=== PATIENT | female | born 1945 | race African-American/Black ===

== ENCOUNTER 2017-10-01 14:28 | Emergency (ER) | payer BC ==
[~2017-10-01] VITALS: Ht 170.2 cm; Wt 75.0 kg
[~2017-10-01 14:28] MED LIST: ASPI-1158 PO; ATOR20TA65 PO; ERGO400C PO; FISH1CAP2 PO; FOLI-43 PO; HYDR-4134 PO; NISO40TA3 PO
[2017-10-01 20:30] VITALS: BP 152/70
== END 2017-10-01 20:32 | disposition home or self-care (01) ==
LOC: ER 16:40
DX: J42 Unspecified chronic bronchitis (principal); I11.0 Hypertensive heart disease with heart failure; I25.2 Old myocardial infarction; J98.11 Atelectasis; I50.9 Heart failure, unspecified; E78.00 Pure hypercholesterolemia, unspecified; Z96.649 Presence of unspecified artificial hip joint; Z88.8 Allergy status to other drugs, medicaments and biological substances; Z79.82 Long term (current) use of aspirin; Z96.659 Presence of unspecified artificial knee joint
CPT/HCPCS: 71046; 99284

== ENCOUNTER 2017-11-01 10:09 | Inpatient (IN) | payer BC ==
[~2017-11-01] VITALS: Ht 170.2 cm; Wt 78.0 kg
[2017-11-01] MEDS ORDERED: METHYLPREDNISOLONE SOD SUCC 125 MG/2 ML VIAL IV STA (10:30)
[2017-11-01] MEDS ORDERED: MAGNESIUM 2 G PREMIX 50 ML IV ONE (10:30)
[2017-11-01] MEDS ORDERED: IPRATROPIUM/ALBUTEROL 0.5-3(2.5)MG/3ML NEB HHN ONE ×2 (10:30→14:15)
[2017-11-01 11:07] LABS: BASOPHILS % 1.2 % (0.0-2.0); EOSINOPHILS % 2.4 % (0.0-5.0); HEMATOCRIT. 33.3 % (36.0-48.0); HEMOGLOBIN. 10.8 g/dL (12.0-16.0); LYMPHOCYTES % 16.2 % (20.0-50.0); MEAN CORPUSCULAR HEMOGLOBIN 28.6 pg (28.0-32.0); MEAN CORPUSCULAR VOLUME 88.6 fL (81.0-99.0); MEAN PLATELET VOLUME 8.1 fl (7.4-10.4); MONOCYTES % 6.3 % (2.0-8.0); NEUTROPHILS % 73.9 % (40.0-76.0); PLATELET 287 x1000/uL (130-400); RED BLOOD CELL COUNT 3.76 mill/uL (4.2-5.4); RED CELL DISTRIBUTION WIDTH 15.2 % (11.6-14.6)
[2017-11-01 11:12] LABS: CHLORIDE 108 mEq/L (98-107)
[2017-11-01 11:16] LABS: PROTHROMBIN TIME 10.5 sec (9.4-11.6)
[2017-11-01] MEDS ORDERED: FUROSEMIDE 40MG/4ML VIAL IVP ONE (12:45)
[2017-11-01] MEDS ORDERED: NITROGLYCERIN OINT 1GM/INCH UDPKT TD ONE (12:45)
[2017-11-01] MEDS ORDERED: ASPIRIN 325MG TABLET PO ONE (14:15)
[2017-11-01] MEDS ORDERED: LEVOFLOXACIN 500MG PREMIX 100 ML IV SCH (16:00)
[2017-11-01] MEDS ORDERED: CLONIDINE 0.1MG TABLET PO PRN (16:00)
[2017-11-01] MEDS ORDERED: HYDROCODONE/ACETAMINOPHEN 5/325MG TABLET PO PRN (16:00)
[2017-11-01] MEDS ORDERED: ONDANSETRON HCL 4MG/2ML VIAL IV PRN (16:00)
[2017-11-01 16:30] VITALS: BP 148/84
[2017-11-01] MEDS: ENOXAPARIN 40MG/0.4ML SYR SUBCUT SCH (18:22)
[2017-11-01] MEDS: IPRATROPIUM/ALBUTEROL 0.5-3(2.5)MG/3ML NEB INH PRN ×2 (18:35→22:17)
[2017-11-01] MEDS ORDERED: BENZ100C86 PO (19:17)
[2017-11-01] MEDS ORDERED: AMLO10TA80 PO (19:18)
[2017-11-01 20:00] VITALS: BP_SYST 138; BP_DIAS 71; BP_DIAS 75
[2017-11-01] MEDS: GUAIFENESIN-DM 200MG-20MG/10ML UDC PO PRN (21:28)
[2017-11-01] MEDS: CEFTRIAXONE 1 G PREMIX 50 ML IV SCH (22:57)
[2017-11-02] VITALS: BP 119/68
[2017-11-02 00:17] LABS: CLARITY URINE CLEAR (CLEAR); COLOR URINE YELLOW (YELLOW); KETONES URINE NEGATIVE (NEGATIVE); LEUKOCYTE ESTERASE URINE NEGATIVE (NEGATIVE); NITRITE URINE NEGATIVE (NEGATIVE); OCCULT BLOOD URINE NEGATIVE (NEGATIVE); PROTEIN URINE 1+ (NEGATIVE); SPECIFIC GRAVITY URINE 1.013 (1.005-1.030); UROBILINOGEN URINE 0.2 E.U./dL (0.2-1.0)
[2017-11-02 04:00] VITALS: BP 131/65
[2017-11-02] MEDS: IPRATROPIUM/ALBUTEROL 0.5-3(2.5)MG/3ML NEB INH PRN (04:18)
[2017-11-02 07:21] LABS: BASOPHILS % 0.2 % (0.0-2.0); HEMATOCRIT. 29.3 % (36.0-48.0); HEMOGLOBIN. 9.8 g/dL (12.0-16.0); LYMPHOCYTES % 8.6 % (20.0-50.0); MEAN CORPUSCULAR HEMOGLOBIN 29.2 pg (28.0-32.0); MEAN CORPUSCULAR VOLUME 87.5 fL (81.0-99.0); MEAN PLATELET VOLUME 8.9 fl (7.4-10.4); MONOCYTES % 3.1 % (2.0-8.0); NEUTROPHILS % 88.1 % (40.0-76.0); PLATELET 260 x1000/uL (130-400); RED BLOOD CELL COUNT 3.35 mill/uL (4.2-5.4); RED CELL DISTRIBUTION WIDTH 14.7 % (11.6-14.6)
[2017-11-02 07:36] LABS: CHLORIDE 104 mEq/L (98-107)
[2017-11-02 07:49] LABS: CREATINE KINASE 99 IU/L (26-192); T4 FREE 1.36 ng/dL (0.76-1.46)
[2017-11-02 08:00] VITALS: BP 142/89
[2017-11-02] MEDS: AMLODIPINE 5MG TABLET PO SCH ×2 (08:41→18:09)
[2017-11-02] MEDS ORDERED: FUROSEMIDE 40MG/4ML VIAL IV SCH (09:00)
[2017-11-02] MEDS: ACETAMINOPHEN 325MG TABLET PO PRN (10:35)
[2017-11-02 12:00] VITALS: BP 124/96
[2017-11-02] MEDS: FAMOTIDINE 20MG/2ML VIAL IV SCH (12:36)
[2017-11-02] MEDS: METHYLPREDNISOLONE SOD SUCC 40 MG/ML VIAL IV SCH ×2 (12:57→21:27)
[2017-11-02] MEDS: IPRATROPIUM/ALBUTEROL 0.5-3(2.5)MG/3ML NEB HHN SCH ×3 (13:43→21:30)
[2017-11-02] MEDS: GUAIFENESIN-DM 200MG-20MG/10ML UDC PO PRN (14:46)
[2017-11-02] MEDS: BUDESONIDE 0.5MG/2ML NEB HHN SCH (15:03)
[2017-11-02 16:00] VITALS: BP 123/71
[2017-11-02] MEDS: ENOXAPARIN 40MG/0.4ML SYR SUBCUT SCH (18:09)
[2017-11-02] MEDS: POTASSIUM CHLORIDE 20MEQ TABLET SR PO SCH ×2 (18:09→21:28)
[2017-11-02] MEDS: ASPIRIN 81MG EC TABLET PO SCH (18:16)
[2017-11-02] MEDS: LOSARTAN POTASSIUM 25 MG TABLET PO SCH (18:23)
[2017-11-02 20:00] VITALS: BP 150/69
[2017-11-02] MEDS: GUAIFENESIN 600MG ER TABLET PO SCH (21:27)
[2017-11-02] MEDS: CARVEDILOL 3.125 MG TABLET PO SCH (21:29)
[2017-11-02] MEDS: FUROSEMIDE 40MG/4ML VIAL IV SCH (21:30)
[2017-11-02] MEDS: CEFTRIAXONE 1 G PREMIX 50 ML IV SCH (23:31)
[2017-11-03] VITALS: BP 128/81
[2017-11-03] MEDS: IPRATROPIUM/ALBUTEROL 0.5-3(2.5)MG/3ML NEB HHN SCH ×6 (02:06→20:38)
[2017-11-03] MEDS: BUDESONIDE 0.5MG/2ML NEB HHN SCH ×3 (02:06→20:37)
[2017-11-03] MEDS: METHYLPREDNISOLONE SOD SUCC 40 MG/ML VIAL IV SCH ×3 (03:57→21:04)
[2017-11-03 04:00] VITALS: BP 125/80
[2017-11-03] MEDS: POTASSIUM CHLORIDE 20MEQ TABLET SR PO SCH (06:10)
[2017-11-03] MEDS: FUROSEMIDE 40MG/4ML VIAL IV SCH (06:10)
[2017-11-03 07:29] VITALS: BP 133/77
[2017-11-03] MEDS: CARVEDILOL 3.125 MG TABLET PO SCH (08:20)
[2017-11-03] MEDS: GUAIFENESIN 600MG ER TABLET PO SCH ×2 (08:20→21:04)
[2017-11-03] MEDS: LOSARTAN POTASSIUM 25 MG TABLET PO SCH (08:20)
[2017-11-03] MEDS: ASPIRIN 81MG EC TABLET PO SCH (08:20)
[2017-11-03] MEDS: FAMOTIDINE 20MG/2ML VIAL IV SCH (09:00)
[2017-11-03 10:02] LABS: HEMATOCRIT. 30.1 % (36.0-48.0); MEAN CORPUSCULAR HEMOGLOBIN 29.1 pg (28.0-32.0); MEAN CORPUSCULAR VOLUME 87.3 fL (81.0-99.0); MEAN PLATELET VOLUME 8.9 fl (7.4-10.4); PLATELET 280 x1000/uL (130-400); RED BLOOD CELL COUNT 3.45 mill/uL (4.2-5.4); RED CELL DISTRIBUTION WIDTH 15.2 % (11.6-14.6)
[2017-11-03 10:52] LABS: PLATELET ESTIMATE NORMAL
[2017-11-03 11:53] VITALS: BP 116/68
[2017-11-03 16:08] VITALS: BP 149/96
[2017-11-03] MEDS: ENOXAPARIN 40MG/0.4ML SYR SUBCUT SCH (17:33)
[2017-11-03 20:00] VITALS: BP 138/80
[2017-11-03] MEDS: GUAIFENESIN-DM 200MG-20MG/10ML UDC PO PRN (21:04)
[2017-11-03] MEDS: ATORVASTATIN CALCIUM 20MG TABLET PO SCH (21:05)
[2017-11-03] MEDS: CEFTRIAXONE 1 G PREMIX 50 ML IV SCH (23:25)
[2017-11-04] VITALS: BP 140/85
[2017-11-04] MEDS: IPRATROPIUM/ALBUTEROL 0.5-3(2.5)MG/3ML NEB HHN SCH ×6 (00:40→21:58)
[2017-11-04 04:00] VITALS: BP 136/86
[2017-11-04] MEDS: METHYLPREDNISOLONE SOD SUCC 40 MG/ML VIAL IV SCH ×3 (04:07→21:14)
[2017-11-04] MEDS: GUAIFENESIN-DM 200MG-20MG/10ML UDC PO PRN (04:07)
[2017-11-04 07:52] LABS: HEMATOCRIT. 31.4 % (36.0-48.0); HEMOGLOBIN. 10.4 g/dL (12.0-16.0); MEAN CORPUSCULAR HEMOGLOBIN 28.9 pg (28.0-32.0); MEAN CORPUSCULAR VOLUME 87.3 fL (81.0-99.0); MEAN PLATELET VOLUME 9.1 fl (7.4-10.4); PLATELET 320 x1000/uL (130-400); RED CELL DISTRIBUTION WIDTH 15.1 % (11.6-14.6)
[2017-11-04 08:00] VITALS: BP 137/68
[2017-11-04 08:05] LABS: CHLORIDE 98 mEq/L (98-107)
[2017-11-04] MEDS: BUDESONIDE 0.5MG/2ML NEB HHN SCH ×2 (08:47→21:58)
[2017-11-04] MEDS: GUAIFENESIN 600MG ER TABLET PO SCH ×2 (08:48→21:14)
[2017-11-04] MEDS: AMLODIPINE 5MG TABLET PO SCH (08:48)
[2017-11-04] MEDS: FAMOTIDINE 20MG/2ML VIAL IV SCH (08:48)
[2017-11-04] MEDS: ASPIRIN 81MG EC TABLET PO SCH (08:48)
[2017-11-04] MEDS: LOSARTAN POTASSIUM 25 MG TABLET PO SCH (08:49)
[2017-11-04] MEDS: FUROSEMIDE 40MG/4ML VIAL IV SCH (08:49)
[2017-11-04 10:37] LABS: PLATELET ESTIMATE NORMAL
[2017-11-04 12:00] VITALS: BP 140/71
[2017-11-04 16:00] VITALS: BP 124/67
[2017-11-04] MEDS: ENOXAPARIN 30MG/0.3ML SYR SUBCUT SCH (18:14)
[2017-11-04 20:00] VITALS: BP 153/85
[2017-11-04] MEDS: ATORVASTATIN CALCIUM 20MG TABLET PO SCH (21:14)
[2017-11-04] MEDS: CEFTRIAXONE 1 G PREMIX 50 ML IV SCH (23:22)
[2017-11-05] VITALS: BP 130/78
[2017-11-05] MEDS: IPRATROPIUM/ALBUTEROL 0.5-3(2.5)MG/3ML NEB HHN SCH ×6 (01:51→20:27)
[2017-11-05 04:00] VITALS: BP 148/76
[2017-11-05] MEDS: METHYLPREDNISOLONE SOD SUCC 40 MG/ML VIAL IV SCH ×2 (04:39→18:04)
[2017-11-05 08:00] VITALS: BP 122/70
[2017-11-05] MEDS: BUDESONIDE 0.5MG/2ML NEB HHN SCH (08:41)
[2017-11-05] MEDS: ASPIRIN 81MG EC TABLET PO SCH (09:31)
[2017-11-05] MEDS: GUAIFENESIN-DM 200MG-20MG/10ML UDC PO PRN (09:31)
[2017-11-05] MEDS: AMLODIPINE 5MG TABLET PO SCH (09:32)
[2017-11-05] MEDS: FAMOTIDINE 20MG/2ML VIAL IV SCH (09:33)
[2017-11-05] MEDS: FUROSEMIDE 40MG/4ML VIAL IV SCH (09:33)
[2017-11-05] MEDS: LOSARTAN POTASSIUM 25 MG TABLET PO SCH (09:33)
[2017-11-05] MEDS: GUAIFENESIN 600MG ER TABLET PO SCH ×2 (09:35→20:19)
[2017-11-05] MEDS ORDERED: GUAIFENESIN/CODEINE 200-20MG/10ML UDC PO NR (11:00)
[2017-11-05 16:00] VITALS: BP 155/76
[2017-11-05] MEDS ORDERED: GUAIFENESIN/CODEINE 200-20MG/10ML UDC PO PRN (16:00)
[2017-11-05] MEDS: ENOXAPARIN 30MG/0.3ML SYR SUBCUT SCH (18:04)
[2017-11-05 20:00] VITALS: BP 126/73
[2017-11-05] MEDS: ATORVASTATIN CALCIUM 40MG TABLET PO SCH (20:19)
[2017-11-05] MEDS: CEFTRIAXONE 1 G PREMIX 50 ML IV SCH (22:25)
[2017-11-06] VITALS: BP 139/79
[2017-11-06] MEDS: IPRATROPIUM/ALBUTEROL 0.5-3(2.5)MG/3ML NEB HHN SCH ×5 (00:51→20:12)
[2017-11-06 04:00] VITALS: BP 124/75
[2017-11-06] MEDS: METHYLPREDNISOLONE SOD SUCC 40 MG/ML VIAL IV SCH ×2 (06:25→17:49)
[2017-11-06 07:41] LABS: HEMATOCRIT. 30.8 % (36.0-48.0); HEMOGLOBIN. 10.1 g/dL (12.0-16.0); MEAN CORPUSCULAR HEMOGLOBIN 28.7 pg (28.0-32.0); MEAN CORPUSCULAR VOLUME 87.1 fL (81.0-99.0); PLATELET 306 x1000/uL (130-400); RED BLOOD CELL COUNT 3.53 mill/uL (4.2-5.4)
[2017-11-06 08:00] VITALS: BP 149/72
[2017-11-06] MEDS: AMLODIPINE 5MG TABLET PO SCH (09:08)
[2017-11-06] MEDS: GUAIFENESIN 600MG ER TABLET PO SCH ×2 (09:08→20:44)
[2017-11-06] MEDS: LOSARTAN POTASSIUM 25 MG TABLET PO SCH (09:08)
[2017-11-06] MEDS: ASPIRIN 81MG EC TABLET PO SCH (09:08)
[2017-11-06] MEDS: FAMOTIDINE 20MG/2ML VIAL IV SCH (09:08)
[2017-11-06] MEDS: FUROSEMIDE 40MG/4ML VIAL IV SCH (09:09)
[2017-11-06 16:00] VITALS: BP 135/80
[2017-11-06 17:17] LABS: PLATELET ESTIMATE NORMAL
[2017-11-06] MEDS: ENOXAPARIN 30MG/0.3ML SYR SUBCUT SCH (17:49)
[2017-11-06] MEDS: ACETAMINOPHEN 325MG TABLET PO PRN (19:51)
[2017-11-06 20:00] VITALS: BP 153/69
[2017-11-06] MEDS: ATORVASTATIN CALCIUM 40MG TABLET PO SCH (20:44)
[2017-11-06] MEDS: CEFTRIAXONE 1 G PREMIX 50 ML IV SCH (22:41)
[2017-11-07] VITALS: BP 127/59
[2017-11-07] MEDS: IPRATROPIUM/ALBUTEROL 0.5-3(2.5)MG/3ML NEB HHN SCH ×4 (00:02→13:25)
[2017-11-07 04:00] VITALS: BP 140/62
[2017-11-07] MEDS: METHYLPREDNISOLONE SOD SUCC 40 MG/ML VIAL IV SCH (05:55)
[2017-11-07 08:00] VITALS: BP 154/67
[2017-11-07] MEDS: AMLODIPINE 5MG TABLET PO SCH (08:34)
[2017-11-07] MEDS: GUAIFENESIN 600MG ER TABLET PO SCH (08:34)
[2017-11-07] MEDS: FAMOTIDINE 20MG/2ML VIAL IV SCH (08:34)
[2017-11-07] MEDS: LOSARTAN POTASSIUM 25 MG TABLET PO SCH (08:34)
[2017-11-07] MEDS: ASPIRIN 81MG EC TABLET PO SCH (08:34)
[2017-11-07] MEDS ORDERED: FUROSEMIDE 40MG TABLET PO SCH (09:00)
[2017-11-07 12:00] VITALS: BP 145/75
[2017-11-07 13:18] VITALS: BP 145/75
[2017-11-07 16:00] VITALS: BP 133/56
== END 2017-11-07 16:14 | disposition home or self-care (01) | DRG 280 ==
LOC: ER 10:25 → ENRESERV 11:16 → 5WST 14:41 → EDBEDREQ 14:46 → SUPCPDRO 15:54
PROVIDERS: ADMIT Internal Medicine; ATTEND Internal Medicine
DX: I21.4 Non-ST elevation (NSTEMI) myocardial infarction (principal); I50.43 Acute on chronic combined systolic (congestive) and diastolic (congestive) heart failure; J96.00 Acute respiratory failure, unspecified whether with hypoxia or hypercapnia; N17.0 Acute kidney failure with tubular necrosis; E46 Unspecified protein-calorie malnutrition; J44.1 Chronic obstructive pulmonary disease with (acute) exacerbation; I13.0 Hypertensive heart and chronic kidney disease with heart failure and stage 1 through stage 4 chronic kidney disease, or unspecified chronic kidney disease; N18.9 Chronic kidney disease, unspecified; D63.8 Anemia in other chronic diseases classified elsewhere; Z96.641 Presence of right artificial hip joint; Z96.659 Presence of unspecified artificial knee joint; G89.29 Other chronic pain; E78.5 Hyperlipidemia, unspecified; I25.10 Atherosclerotic heart disease of native coronary artery without angina pectoris; I27.20 Pulmonary hypertension, unspecified; I08.0 Rheumatic disorders of both mitral and aortic valves; Z79.82 Long term (current) use of aspirin; Z87.891 Personal history of nicotine dependence; Z95.5 Presence of coronary angioplasty implant and graft; Z88.1 Allergy status to other antibiotic agents; Z88.8 Allergy status to other drugs, medicaments and biological substances; Z79.899 Other long term (current) drug therapy; Z72.89 Other problems related to lifestyle
CPT/HCPCS: 36415; 71045; 80048; 80053; 80061; 81003; 82550; 83036; 83605; 83735; 83880; 84439; 84443; 84484; 85025; 85610; 85730; 87040; 87070; 87804; 93005; 93306; 94618; 94640; 96365; 96375; 99285; J0696; J1650; J1940; J2920; J2930; J3475; J3490; J7050; J7620; J7626

== ENCOUNTER 2017-11-20 09:45 | Inpatient (IN) | payer BC ==
[~2017-11-20] VITALS: Ht 170.2 cm; Wt 72.4 kg
[~2017-11-20 09:45] MED LIST changes: +AMLO10TA80 PO; +BENZ100C86 PO
[2017-11-20] MEDS ORDERED: ASPIRIN 81MG TABLET PO STA (10:04)
[2017-11-20] MEDS ORDERED: ONDANSETRON HCL 4MG/2ML VIAL IV STA (10:04)
[2017-11-20] MEDS ORDERED: ACETAMINOPHEN 325MG TABLET PO ONE (10:15)
[2017-11-20 10:27] LABS: BASOPHILS % 0.5 % (0.0-2.0); CHLORIDE 103 mEq/L (98-107); EOSINOPHILS % 3.4 % (0.0-5.0); HEMATOCRIT. 34.3 % (36.0-48.0); HEMOGLOBIN. 11.4 g/dL (12.0-16.0); LYMPHOCYTES % 12.4 % (20.0-50.0); MEAN CORPUSCULAR HEMOGLOBIN 29.5 pg (28.0-32.0); MEAN CORPUSCULAR VOLUME 88.5 fL (81.0-99.0); MONOCYTES % 6.1 % (2.0-8.0); NEUTROPHILS % 77.6 % (40.0-76.0); PLATELET 239 x1000/uL (130-400); RED BLOOD CELL COUNT 3.87 mill/uL (4.2-5.4); RED CELL DISTRIBUTION WIDTH 16.4 % (11.6-14.6)
[2017-11-20 10:50] LABS: D-DIMER 0.88 mg/L FEU (<0.50); INR 1.1; PARTIAL THROMBOPLASTIN TIME 29.2 sec (23.4-31.0); PROTHROMBIN TIME 11.4 sec (9.4-11.6)
[2017-11-20 10:58] LABS: CLARITY URINE CLEAR (CLEAR); COLOR URINE YELLOW (YELLOW); KETONES URINE NEGATIVE (NEGATIVE); LEUKOCYTE ESTERASE URINE 1+ (NEGATIVE); NITRITE URINE NEGATIVE (NEGATIVE); OCCULT BLOOD URINE NEGATIVE (NEGATIVE); PROTEIN URINE NEGATIVE (NEGATIVE); SPECIFIC GRAVITY URINE 1.006 (1.005-1.030); UROBILINOGEN URINE 0.2 E.U./dL (0.2-1.0)
[2017-11-20 12:00] VITALS: BP 147/78
[2017-11-20 12:30] VITALS: BP 147/78
[2017-11-20] MEDS ORDERED: ENOXAPARIN 40MG/0.4ML SYR SUBCUT SCH (14:00)
[2017-11-20] MEDS ORDERED: IPRATROPIUM/ALBUTEROL 0.5-3(2.5)MG/3ML NEB INH PRN (14:00)
[2017-11-20] MEDS ORDERED: HYDROCODONE/ACETAMINOPHEN 5/325MG TABLET PO PRN (14:00)
[2017-11-20] MEDS ORDERED: ASPIRIN 81MG EC TABLET PO SCH (14:00)
[2017-11-20] MEDS ORDERED: ONDANSETRON HCL 4MG/2ML VIAL IV PRN (14:00)
[2017-11-20] MEDS ORDERED: CLONIDINE 0.1MG TABLET PO PRN (14:00)
[2017-11-20] MEDS ORDERED: ACETAMINOPHEN 325MG TABLET PO PRN (14:00)
[2017-11-20 16:00] VITALS: BP 152/73
[2017-11-20] MEDS: POTASSIUM CHLORIDE 20MEQ TABLET SR PO SCH (18:32)
[2017-11-20] MEDS: FUROSEMIDE 40MG/4ML VIAL IVP SCH (18:32)
[2017-11-20 20:00] VITALS: BP 145/65
[2017-11-20] MEDS: ATORVASTATIN CALCIUM 20MG TABLET PO SCH (20:19)
[2017-11-20] MEDS: AMLODIPINE 5MG TABLET PO SCH (20:20)
[2017-11-20] MEDS ORDERED: ENOXAPARIN 60MG/0.6ML SYR SUBCUT SCH (21:00)
[2017-11-20 23:19] LABS: *AMPHETAMINES SCREEN URINE NEGATIVE (NEGATIVE); *BARBITURATES SCREEN URINE NEGATIVE (NEGATIVE); *BENZODIAZEPINES SCREEN URINE NEGATIVE (NEGATIVE); *COCAINE SCREEN URINE NEGATIVE (NEGATIVE)
[2017-11-20 23:20] LABS: CANNABINOID URINE SCREEN NEGATIVE (NEGATIVE); METHADONE URINE SCREEN NEGATIVE (NEGATIVE); OPIATES URINE SCREEN NEGATIVE (NEGATIVE); PHENCYCLIDINE URINE SCREEN NEGATIVE (NEGATIVE)
[2017-11-21] VITALS (11 sets, daily range): BP systolic 124–153; BP diastolic 55–82
[2017-11-21] MEDS: FUROSEMIDE 40MG/4ML VIAL IVP SCH (06:16)
[2017-11-21 06:40] LABS: BASOPHILS % 0.3 % (0.0-2.0); EOSINOPHILS % 2.9 % (0.0-5.0); HEMATOCRIT. 28.1 % (36.0-48.0); HEMOGLOBIN. 9.2 g/dL (12.0-16.0); LYMPHOCYTES % 14.5 % (20.0-50.0); MEAN CORPUSCULAR VOLUME 88.5 fL (81.0-99.0); MEAN PLATELET VOLUME 8.6 fl (7.4-10.4); MONOCYTES % 6.1 % (2.0-8.0); NEUTROPHILS % 76.2 % (40.0-76.0); PLATELET 150 x1000/uL (130-400); RED BLOOD CELL COUNT 3.18 mill/uL (4.2-5.4); RED CELL DISTRIBUTION WIDTH 16.4 % (11.6-14.6)
[2017-11-21] MEDS: POTASSIUM CHLORIDE 20MEQ TABLET SR PO SCH ×2 (08:47→18:33)
[2017-11-21] MEDS: AMLODIPINE 5MG TABLET PO SCH ×2 (08:48→21:39)
[2017-11-21] MEDS: ASPIRIN 325MG EC TABLET PO SCH (08:48)
[2017-11-21 09:57] LABS: CHLORIDE 103 mEq/L (98-107)
[2017-11-21] MEDS ORDERED: HEPARIN SODIUM 1,000 UNIT/1ML VIAL IV ONE (10:00)
[2017-11-21 10:07] LABS: LDL CHOLESTEROL 129 mg/dL (5-100)
[2017-11-21 10:09] LABS: HDL CHOLESTEROL 43 mg/dL (40-59)
[2017-11-21] MEDS ORDERED: MORPHINE SULFATE 4 MG/ML CPJ (NOT FOR IM USE) IV PRN (13:00)
[2017-11-21] MEDS ORDERED: LIDOCAINE HCL/PF 1% 10 MG/ML 5ML VIAL ONE ×2 (13:50→13:51)
[2017-11-21] MEDS ORDERED: IODIXANOL 320MG/ML 100 ML BOTTLE IV ONE ×2 (14:00→15:38)
[2017-11-21] MEDS ORDERED: FENTANYL CITRATE/PF 50MCG/ML 2ML VIAL ONE ×2 (14:05→15:33)
[2017-11-21] MEDS ORDERED: MIDAZOLAM HCL 2 MG/2 ML VIAL ONE (14:09)
[2017-11-21] MEDS ORDERED: IOHEXOL-300 100 ML BOTTLE ONE (15:21)
[2017-11-21] MEDS ORDERED: ATROPINE SULFATE 1MG/10ML SYR IV PRN (16:45)
[2017-11-21] MEDS ORDERED: MORPHINE SULFATE 2 MG/ML CPJ (NOT FOR IM USE) IV PRN (16:45)
[2017-11-21] MEDS ORDERED: ONDANSETRON HCL 4MG/2ML VIAL IV PRN (16:45)
[2017-11-21] MEDS ORDERED: ACETAMINOPHEN 325MG TABLET PO PRN (16:45)
[2017-11-21] MEDS: ATORVASTATIN CALCIUM 20MG TABLET PO SCH (21:38)
[2017-11-22] VITALS (17 sets, daily range): BP systolic 111–145; BP diastolic 33–89
[2017-11-22 07:20] LABS: BASOPHILS % 0.8 % (0.0-2.0); EOSINOPHILS % 4.5 % (0.0-5.0); HEMATOCRIT. 27.9 % (36.0-48.0); HEMOGLOBIN. 9.4 g/dL (12.0-16.0); LYMPHOCYTES % 15.3 % (20.0-50.0); MEAN CORPUSCULAR HEMOGLOBIN 30.2 pg (28.0-32.0); MEAN CORPUSCULAR VOLUME 89.2 fL (81.0-99.0); MEAN PLATELET VOLUME 8.9 fl (7.4-10.4); MONOCYTES % 8.1 % (2.0-8.0); NEUTROPHILS % 71.3 % (40.0-76.0); PLATELET 132 x1000/uL (130-400); RED BLOOD CELL COUNT 3.13 mill/uL (4.2-5.4); RED CELL DISTRIBUTION WIDTH 15.5 % (11.6-14.6)
[2017-11-22] MEDS ORDERED: MORPHINE SULFATE 4 MG/ML CPJ (NOT FOR IM USE) IV PRN ×2 (07:58→17:01)
[2017-11-22] MEDS ORDERED: FUROSEMIDE 40MG/4ML VIAL IVP SCH (09:00)
[2017-11-22] MEDS: POTASSIUM CHLORIDE 20MEQ TABLET SR PO SCH (10:44)
[2017-11-22] MEDS: AMLODIPINE 5MG TABLET PO SCH (10:44)
[2017-11-22] MEDS: ASPIRIN 325MG EC TABLET PO SCH (10:45)
[2017-11-22 14:25] LABS: HEMATOCRIT 29.4 % (36.0-48.0); HEMOGLOBIN 9.8 g/dL (12.0-16.0)
== END 2017-11-22 17:30 | disposition home or self-care (01) | DRG 246 ==
LOC: EDBEDREQ 10:07 → EDBEDREQTM 11:04 → EDBEDREQ 11:04 → ER 11:16 → 5WST 11:20 → ENRESERV 11:31 → 3WST 11-21 18:05
PROVIDERS: ADMIT Internal Medicine; ATTEND Internal Medicine
PROC: B2111ZZ Fluoroscopy of Multiple Coronary Arteries using Low Osmolar Contrast (ICD-10-PCS; 2017-11-20)
PROC: 4A023N8 Measurement of Cardiac Sampling and Pressure, Bilateral, Percutaneous Approach (ICD-10-PCS; 2017-11-20)
PROC: 027036Z Dilation of Coronary Artery, One Artery with Three Drug-eluting Intraluminal Devices, Percutaneous Approach (ICD-10-PCS; principal; 2017-11-21)
DX: I25.110 Atherosclerotic heart disease of native coronary artery with unstable angina pectoris (principal); I50.23 Acute on chronic systolic (congestive) heart failure; I27.20 Pulmonary hypertension, unspecified; I25.5 Ischemic cardiomyopathy; D64.9 Anemia, unspecified; N39.0 Urinary tract infection, site not specified; E87.6 Hypokalemia; I11.0 Hypertensive heart disease with heart failure; I08.0 Rheumatic disorders of both mitral and aortic valves; E16.2 Hypoglycemia, unspecified; Z96.641 Presence of right artificial hip joint; Z96.659 Presence of unspecified artificial knee joint; E78.5 Hyperlipidemia, unspecified; I73.9 Peripheral vascular disease, unspecified; J44.9 Chronic obstructive pulmonary disease, unspecified; T50.2X5A Adverse effect of carbonic-anhydrase inhibitors, benzothiadiazides and other diuretics, initial encounter; Z79.82 Long term (current) use of aspirin; Z87.891 Personal history of nicotine dependence; Z88.1 Allergy status to other antibiotic agents; Z88.8 Allergy status to other drugs, medicaments and biological substances; I25.2 Old myocardial infarction; Z79.899 Other long term (current) drug therapy; Z72.89 Other problems related to lifestyle
CPT/HCPCS: 36415; 71045; 71250; 76857; 80048; 80053; 80061; 80305; 81003; 82550; 82553; 82962; 83690; 83735; 83880; 84443; 84484; 85014; 85018; 85025; 85347; 85379; 85610; 85730; 87086; 92928; 93005; 93460; 93970; 96374; 99285; C1725; C1760; C1769; C1887; C1893; J1644; J1650; J1940; J2250; J2270; J2405; J3010; J3490; Q9967

== ENCOUNTER 2017-11-29 20:52 | Inpatient (IN) | payer BC ==
[~2017-11-29] VITALS: Ht 170.2 cm; Wt 71.8 kg
[2017-11-29 20:15] VITALS: BP 131/79
[~2017-11-29 20:52] MED LIST changes: -ASPI-1158 PO; -BENZ100C86 PO
[2017-11-29] MEDS ORDERED: CLONIDINE 0.1MG TABLET PO PRN (21:45)
[2017-11-29] MEDS ORDERED: ACETAMINOPHEN 325MG TABLET PO PRN (21:45)
[2017-11-29] MEDS ORDERED: IPRATROPIUM/ALBUTEROL 0.5-3(2.5)MG/3ML NEB HHN PRN (21:45)
[2017-11-29] MEDS ORDERED: HYDROCODONE/ACETAMINOPHEN 5/325MG TABLET PO PRN (21:45)
[2017-11-29] MEDS ORDERED: NITROGLYCERIN 0.4MG TABLET SL SL PRN (21:45)
[2017-11-29 22:00] VITALS: BP 138/72
[2017-11-29] MEDS ORDERED: ZOLPIDEM TARTRATE 5MG TABLET PO PRN (22:00)
[2017-11-29] MEDS ORDERED: HEPARIN 25,000 UNITS PREMIX 500 ML IV SCH (22:00)
[2017-11-29 23:22] VITALS: BP 138/88
[2017-11-29 23:51] LABS: BASOPHILS % 1.3 % (0.0-2.0); EOSINOPHILS % 2.7 % (0.0-5.0); HEMATOCRIT. 25.9 % (36.0-48.0); HEMOGLOBIN. 8.6 g/dL (12.0-16.0); LYMPHOCYTES % 19.8 % (20.0-50.0); MEAN CORPUSCULAR HEMOGLOBIN 28.9 pg (28.0-32.0); MEAN CORPUSCULAR VOLUME 87.3 fL (81.0-99.0); MEAN PLATELET VOLUME 7.9 fl (7.4-10.4); MONOCYTES % 5.9 % (2.0-8.0); NEUTROPHILS % 70.3 % (40.0-76.0); PLATELET 330 x1000/uL (130-400); RED BLOOD CELL COUNT 2.96 mill/uL (4.2-5.4); RED CELL DISTRIBUTION WIDTH 15.9 % (11.6-14.6)
[2017-11-29 23:53] LABS: CHLORIDE 106 mEq/L (98-107)
[2017-11-29] MEDS ORDERED: HEPARIN 5000 UNITS/ML VIAL IV NR (23:59)
[2017-11-30] VITALS (24 sets, daily range): BP systolic 109–156; BP diastolic 57–93
[2017-11-30] MEDS ORDERED: HEPARIN 25,000 UNITS PREMIX 500 ML IV PRN
[2017-11-30 00:03] LABS: CREATINE KINASE 102 IU/L (26-192)
[2017-11-30 00:06] LABS: CREATINE KINASE MB FRACTION 3.3 ng/mL (0.5-3.6)
[2017-11-30] MEDS ORDERED: HEPARIN 5000 UNITS/ML VIAL IV NR (00:30)
[2017-11-30] MEDS: NITROGLYCERIN OINT 1GM/INCH UDPKT TD SCH ×4 (00:54→21:47)
[2017-11-30] MEDS ORDERED: FLUT1BLS3 IH (04:37)
[2017-11-30] MEDS ORDERED: ASPI-1159 PO (04:37)
[2017-11-30] MEDS ORDERED: CLOP75TA16 PO (04:37)
[2017-11-30] MEDS ORDERED: HEPARIN 5000 UNITS/ML VIAL IV PRN ×2 (06:00)
[2017-11-30 06:37] LABS: BASOPHILS % 1.3 % (0.0-2.0); HEMATOCRIT. 22.7 % (36.0-48.0); HEMOGLOBIN. 7.5 g/dL (12.0-16.0); LYMPHOCYTES % 28.5 % (20.0-50.0); MEAN CORPUSCULAR VOLUME 87.6 fL (81.0-99.0); MEAN PLATELET VOLUME 8.1 fl (7.4-10.4); MONOCYTES % 8.2 % (2.0-8.0); PLATELET 294 x1000/uL (130-400); RED BLOOD CELL COUNT 2.59 mill/uL (4.2-5.4); RED CELL DISTRIBUTION WIDTH 15.7 % (11.6-14.6)
[2017-11-30 07:23] LABS: CLARITY URINE CLEAR (CLEAR); COLOR URINE YELLOW (YELLOW); KETONES URINE NEGATIVE (NEGATIVE); LEUKOCYTE ESTERASE URINE 1+ (NEGATIVE); NITRITE URINE NEGATIVE (NEGATIVE); OCCULT BLOOD URINE NEGATIVE (NEGATIVE); PROTEIN URINE TRACE (NEGATIVE); SPECIFIC GRAVITY URINE 1.018 (1.005-1.030); UROBILINOGEN URINE 0.2 E.U./dL (0.2-1.0)
[2017-11-30 08:31] LABS: T4 FREE 1.23 ng/dL (0.76-1.46)
[2017-11-30 08:35] LABS: CREATINE KINASE MB FRACTION 2.7 ng/mL (0.5-3.6)
[2017-11-30] MEDS: CLOPIDOGREL 75MG TABLET PO SCH (08:43)
[2017-11-30] MEDS: ASPIRIN 81MG EC TABLET PO SCH (08:44)
[2017-11-30] MEDS ORDERED: ACETAMINOPHEN 325MG TABLET PO ONE (09:00)
[2017-11-30] MEDS ORDERED: ACETAMINOPHEN 650MG SUPP PR ONE (09:00)
[2017-11-30] MEDS ORDERED: DIPHENHYDRAMINE 25MG CAPSULE PO ONE (09:00)
[2017-11-30] MEDS ORDERED: LORATADINE 10MG TABLET PO ONE (09:00)
[2017-11-30] MEDS ORDERED: SODIUM CHLORIDE 0.45% 1,000 ML IV SCH (10:00)
[2017-11-30] MEDS ORDERED: ALBUTEROL (0.5%) 2.5MG/0.5ML NEB HHN PRN (10:15)
[2017-11-30 10:37] LABS: INR 1.1; PROTHROMBIN TIME 11.3 sec (9.4-11.6)
[2017-11-30 10:40] LABS: TOTAL IRON BINDING CAPACITY 217 ug/dL (250-450)
[2017-11-30] MEDS: IPRATROPIUM BROMIDE (0.02%) 0.5MG/2.5ML NEB HHN PRN (11:20)
[2017-11-30] MEDS ORDERED: MORPHINE SULFATE 4 MG/ML CPJ (NOT FOR IM USE) IV PRN (11:45)
[2017-11-30] MEDS: METHYLPREDNISOLONE SOD SUCC 40 MG/ML VIAL IV SCH ×2 (11:55→21:46)
[2017-11-30] MEDS ORDERED: IODIXANOL 320MG/ML 100 ML BOTTLE IV ONE (12:49)
[2017-11-30] MEDS ORDERED: MIDAZOLAM HCL 2 MG/2 ML VIAL ONE (12:49)
[2017-11-30] MEDS ORDERED: FENTANYL CITRATE/PF 50MCG/ML 2ML VIAL ONE (12:49)
[2017-11-30] MEDS ORDERED: LIDOCAINE HCL/PF 1% 10 MG/ML 5ML VIAL ONE (12:50)
[2017-11-30] MEDS ORDERED: ATROPINE SULFATE 1MG/10ML SYR IV PRN (13:30)
[2017-11-30] MEDS ORDERED: ACETAMINOPHEN 325MG TABLET PO PRN (13:30)
[2017-11-30] MEDS ORDERED: NICARDIPINE 100MCG/ML 10ML VIAL (CATH LAB) IV ONE (15:06)
[2017-11-30] MEDS ORDERED: NITROGLYCERIN 50MCG/ML 10ML VIAL (CATH LAB) IV ONE (15:06)
[2017-11-30] MEDS ORDERED: HEPARIN SODIUM 1,000 UNIT/1ML VIAL IV ONE (15:06)
[2017-11-30 17:00] LABS: FOLIC ACID (FOLATE) SERUM 10.7 ng/mL (>5.38)
[2017-11-30] MEDS: PANTOPRAZOLE SODIUM 40 MG/VIAL IV SCH (17:35)
[2017-11-30] MEDS: PIPERACILLIN/TAZ 2.25G PREMIX 50 ML IV SCH (17:51)
[2017-11-30 20:46] LABS: CREATINE KINASE MB FRACTION 2.7 ng/mL (0.5-3.6)
[2017-11-30] MEDS: ATORVASTATIN CALCIUM 20MG TABLET PO SCH (21:46)
[2017-12-01] VITALS (15 sets, daily range): BP systolic 128–157; BP diastolic 75–98
[2017-12-01] MEDS: PIPERACILLIN/TAZ 2.25G PREMIX 50 ML IV SCH ×3 (00:33→15:58)
[2017-12-01] MEDS: METHYLPREDNISOLONE SOD SUCC 40 MG/ML VIAL IV SCH ×2 (05:57→14:21)
[2017-12-01] MEDS: NITROGLYCERIN OINT 1GM/INCH UDPKT TD SCH ×3 (06:05→21:33)
[2017-12-01 07:15] LABS: BASOPHILS % 0.3 % (0.0-2.0); HEMATOCRIT. 28.8 % (36.0-48.0); HEMOGLOBIN. 9.6 g/dL (12.0-16.0); LYMPHOCYTES % 12.9 % (20.0-50.0); MEAN CORPUSCULAR HEMOGLOBIN 28.4 pg (28.0-32.0); MEAN CORPUSCULAR VOLUME 85.6 fL (81.0-99.0); MEAN PLATELET VOLUME 8.4 fl (7.4-10.4); MONOCYTES % 1.4 % (2.0-8.0); NEUTROPHILS % 85.4 % (40.0-76.0); PLATELET 376 x1000/uL (130-400); RED BLOOD CELL COUNT 3.36 mill/uL (4.2-5.4); RED CELL DISTRIBUTION WIDTH 15.8 % (11.6-14.6)
[2017-12-01 07:18] LABS: CHLORIDE 108 mEq/L (98-107)
[2017-12-01 07:31] LABS: CREATINE KINASE 48 IU/L (26-192); CREATINE KINASE MB FRACTION 2.8 ng/mL (0.5-3.6); HDL CHOLESTEROL 40 mg/dL (40-59)
[2017-12-01 07:35] LABS: PHOSPHORUS 4.6 mg/dL (2.5-4.9)
[2017-12-01 07:36] LABS: LDL CHOLESTEROL 130 mg/dL (5-100)
[2017-12-01] MEDS: PANTOPRAZOLE SODIUM 40 MG/VIAL IV SCH (09:00)
[2017-12-01] MEDS: CLOPIDOGREL 75MG TABLET PO SCH (09:00)
[2017-12-01] MEDS: ASPIRIN 81MG EC TABLET PO SCH (09:00)
[2017-12-01] MEDS ORDERED: BISACODYL 10MG SUPP PR SCH (09:45)
[2017-12-01] MEDS ORDERED: BISACODYL 10MG SUPP PR PRN (09:45)
[2017-12-01] MEDS: DOCUSATE SODIUM 250MG CAPSULE PO SCH (10:13)
[2017-12-01] MEDS: FUROSEMIDE 40MG/4ML VIAL IVP SCH (15:58)
[2017-12-01] MEDS ORDERED: BISACODYL 5MG TABLET PO NR (16:45)
[2017-12-01] MEDS ORDERED: METOCLOPRAMIDE 10MG/10 ML UDC PO NR ×2 (16:45→21:30)
[2017-12-01 16:52] LABS: INR 1.1; PARTIAL THROMBOPLASTIN TIME 26.6 sec (23.4-31.0)
[2017-12-01] MEDS ORDERED: SORBITOL 70% SOLN 30ML PO NR ×2 (18:00→22:30)
[2017-12-01] MEDS: ATORVASTATIN CALCIUM 20MG TABLET PO SCH (21:33)
[2017-12-01] MEDS: BISACODYL 5MG TABLET PO NR ×2 (21:37→23:23)
[2017-12-02] VITALS (12 sets, daily range): BP systolic 125–152; BP diastolic 58–97
[2017-12-02] MEDS: PIPERACILLIN/TAZ 2.25G PREMIX 50 ML IV SCH ×3 (01:49→16:25)
[2017-12-02] MEDS ORDERED: METOCLOPRAMIDE 10MG/10 ML UDC PO NR (05:00)
[2017-12-02] MEDS ORDERED: BISACODYL 5MG TABLET PO NR (05:00)
[2017-12-02] MEDS ORDERED: SORBITOL 70% SOLN 30ML PO NR (06:00)
[2017-12-02] MEDS: NITROGLYCERIN OINT 1GM/INCH UDPKT TD SCH (06:37)
[2017-12-02 07:06] LABS: INR 1.1; PARTIAL THROMBOPLASTIN TIME 23.6 sec (23.4-31.0); PROTHROMBIN TIME 11.3 sec (9.4-11.6)
[2017-12-02 07:24] LABS: BASOPHILS % 0.1 % (0.0-2.0); HEMATOCRIT. 27.3 % (36.0-48.0); HEMOGLOBIN. 9.1 g/dL (12.0-16.0); LYMPHOCYTES % 9.1 % (20.0-50.0); MEAN CORPUSCULAR HEMOGLOBIN 29.6 pg (28.0-32.0); MEAN CORPUSCULAR VOLUME 88.4 fL (81.0-99.0); MEAN PLATELET VOLUME 8.3 fl (7.4-10.4); MONOCYTES % 5.8 % (2.0-8.0); PLATELET 431 x1000/uL (130-400); RED BLOOD CELL COUNT 3.09 mill/uL (4.2-5.4); RED CELL DISTRIBUTION WIDTH 15.5 % (11.6-14.6)
[2017-12-02 07:54] LABS: PHOSPHORUS 4.9 mg/dL (2.5-4.9)
[2017-12-02] MEDS: PANTOPRAZOLE SODIUM 40 MG/VIAL IV SCH (09:21)
[2017-12-02] MEDS: ASPIRIN 81MG EC TABLET PO SCH (09:21)
[2017-12-02] MEDS: DOCUSATE SODIUM 250MG CAPSULE PO SCH (09:21)
[2017-12-02] MEDS: FUROSEMIDE 40MG/4ML VIAL IVP SCH (09:21)
[2017-12-02] MEDS: CLOPIDOGREL 75MG TABLET PO SCH (09:21)
[2017-12-02] MEDS ORDERED: FENTANYL CITRATE/PF 50MCG/ML 2ML VIAL ONE (12:49)
[2017-12-02] MEDS ORDERED: MIDAZOLAM HCL 5 MG/5 ML VIAL ONE (12:49)
[2017-12-02] MEDS ORDERED: FENTANYL CITRATE/PF 50MCG/ML 2ML VIAL IV PRN (13:11)
[2017-12-02] MEDS ORDERED: MIDAZOLAM HCL 2 MG/2 ML VIAL IV PRN (13:41)
[2017-12-02] MEDS ORDERED: SODIUM CHLORIDE 0.9% 10ML VIAL ONE (14:39)
[2017-12-02] MEDS ORDERED: SIMETHICONE 40 MG/0.6 ML 30ML ONE (14:39)
[2017-12-02 18:36] LABS: CLARITY URINE CLEAR (CLEAR); COLOR URINE YELLOW (YELLOW); KETONES URINE NEGATIVE (NEGATIVE); LEUKOCYTE ESTERASE URINE NEGATIVE (NEGATIVE); NITRITE URINE NEGATIVE (NEGATIVE); OCCULT BLOOD URINE NEGATIVE (NEGATIVE); PROTEIN URINE NEGATIVE (NEGATIVE); SPECIFIC GRAVITY URINE 1.013 (1.005-1.030); UROBILINOGEN URINE 0.2 E.U./dL (0.2-1.0)
[2017-12-02] MEDS: ATORVASTATIN CALCIUM 20MG TABLET PO SCH (20:43)
[2017-12-03] VITALS (12 sets, daily range): BP systolic 113–142; BP diastolic 50–88
[2017-12-03] MEDS: PIPERACILLIN/TAZ 2.25G PREMIX 50 ML IV SCH ×3 (00:03→16:21)
[2017-12-03 07:07] LABS: BASOPHILS % 0.9 % (0.0-2.0); EOSINOPHILS % 2.3 % (0.0-5.0); HEMATOCRIT. 26.7 % (36.0-48.0); HEMOGLOBIN. 8.9 g/dL (12.0-16.0); LYMPHOCYTES % 17.1 % (20.0-50.0); MEAN CORPUSCULAR HEMOGLOBIN 29.7 pg (28.0-32.0); MEAN CORPUSCULAR VOLUME 89.2 fL (81.0-99.0); MEAN PLATELET VOLUME 8.3 fl (7.4-10.4); MONOCYTES % 6.2 % (2.0-8.0); NEUTROPHILS % 73.5 % (40.0-76.0); PLATELET 411 x1000/uL (130-400)
[2017-12-03 07:38] LABS: CHLORIDE 112 mEq/L (98-107)
[2017-12-03 07:46] LABS: PHOSPHORUS 4.6 mg/dL (2.5-4.9)
[2017-12-03] MEDS: DOCUSATE SODIUM 250MG CAPSULE PO SCH (08:25)
[2017-12-03] MEDS: CLOPIDOGREL 75MG TABLET PO SCH (08:27)
[2017-12-03] MEDS: ASPIRIN 81MG EC TABLET PO SCH (08:27)
[2017-12-03] MEDS: PANTOPRAZOLE SODIUM 40 MG/VIAL IV SCH (08:27)
[2017-12-03] MEDS ORDERED: FUROSEMIDE 40MG/4ML VIAL IVP NR (10:30)
[2017-12-03] MEDS: ALBUTEROL (0.5%) 2.5MG/0.5ML NEB HHN SCH ×2 (16:07→21:22)
[2017-12-03] MEDS: ATORVASTATIN CALCIUM 20MG TABLET PO SCH (20:43)
[2017-12-03] MEDS: IPRATROPIUM BROMIDE (0.02%) 0.5MG/2.5ML NEB HHN PRN (21:26)
[2017-12-04] VITALS (17 sets, daily range): BP systolic 111–165; BP diastolic 56–98
[2017-12-04] MEDS: PIPERACILLIN/TAZ 2.25G PREMIX 50 ML IV SCH ×4 (00:07→23:35)
[2017-12-04] MEDS: ALBUTEROL (0.5%) 2.5MG/0.5ML NEB HHN SCH ×4 (04:33→19:55)
[2017-12-04] MEDS: IPRATROPIUM BROMIDE (0.02%) 0.5MG/2.5ML NEB HHN PRN (04:33)
[2017-12-04 07:02] LABS: BASOPHILS % 0.6 % (0.0-2.0); EOSINOPHILS % 2.4 % (0.0-5.0); HEMATOCRIT. 27.1 % (36.0-48.0); HEMOGLOBIN. 9.2 g/dL (12.0-16.0); LYMPHOCYTES % 29.3 % (20.0-50.0); MEAN CORPUSCULAR HEMOGLOBIN 32.3 pg (28.0-32.0); MEAN CORPUSCULAR VOLUME 95.5 fL (81.0-99.0); MEAN PLATELET VOLUME 8.2 fl (7.4-10.4); MONOCYTES % 7.3 % (2.0-8.0); NEUTROPHILS % 60.4 % (40.0-76.0); PLATELET 410 x1000/uL (130-400); RED BLOOD CELL COUNT 2.84 mill/uL (4.2-5.4)
[2017-12-04 07:41] LABS: CHLORIDE 110 mEq/L (98-107)
[2017-12-04 07:51] LABS: PHOSPHORUS 4.8 mg/dL (2.5-4.9)
[2017-12-04] MEDS: DOCUSATE SODIUM 250MG CAPSULE PO SCH (08:17)
[2017-12-04] MEDS: PANTOPRAZOLE SODIUM 40 MG/VIAL IV SCH (08:17)
[2017-12-04] MEDS: ASPIRIN 81MG EC TABLET PO SCH (08:17)
[2017-12-04] MEDS: CLOPIDOGREL 75MG TABLET PO SCH (08:18)
[2017-12-04] MEDS: ATORVASTATIN CALCIUM 20MG TABLET PO SCH (21:57)
[2017-12-05] VITALS (13 sets, daily range): BP systolic 117–169; BP diastolic 47–89
[2017-12-05 06:03] LABS: EOSINOPHILS % 2.9 % (0.0-5.0); HEMATOCRIT 24.6 % (36.0-48.0); HEMATOCRIT. 24.6 % (36.0-48.0); HEMOGLOBIN 8.6 g/dL (12.0-16.0); HEMOGLOBIN. 8.6 g/dL (12.0-16.0); MEAN CORPUSCULAR HEMOGLOBIN 35.7 pg (28.0-32.0); MEAN CORPUSCULAR VOLUME 101.8 fL (81.0-99.0); MEAN PLATELET VOLUME 7.9 fl (7.4-10.4); MONOCYTES % 7.1 % (2.0-8.0); PLATELET 371 x1000/uL (130-400); RED BLOOD CELL COUNT 2.42 mill/uL (4.2-5.4); RED CELL DISTRIBUTION WIDTH 15.8 % (11.6-14.6)
[2017-12-05] MEDS: PANTOPRAZOLE SODIUM 40 MG/VIAL IV SCH (08:00)
[2017-12-05] MEDS: DOCUSATE SODIUM 250MG CAPSULE PO SCH (08:00)
[2017-12-05] MEDS: CLOPIDOGREL 75MG TABLET PO SCH (08:00)
[2017-12-05] MEDS: ASPIRIN 81MG EC TABLET PO SCH (08:00)
[2017-12-05] MEDS: PIPERACILLIN/TAZ 2.25G PREMIX 50 ML IV SCH ×2 (08:00→16:52)
[2017-12-05] MEDS: ALBUTEROL (0.5%) 2.5MG/0.5ML NEB HHN SCH ×2 (08:23→12:35)
[2017-12-05] MEDS ORDERED: ONDANSETRON HCL 4MG/2ML VIAL IV PRN (10:00)
[2017-12-05] MEDS: ATORVASTATIN CALCIUM 20MG TABLET PO SCH (21:22)
[2017-12-06] VITALS: BP 128/60
[2017-12-06] MEDS: PIPERACILLIN/TAZ 2.25G PREMIX 50 ML IV SCH ×2 (00:38→08:40)
[2017-12-06 04:00] VITALS: BP 115/53
[2017-12-06 07:46] LABS: PHOSPHORUS 3.8 mg/dL (2.5-4.9)
[2017-12-06 08:00] VITALS: BP 126/62
[2017-12-06] MEDS: PANTOPRAZOLE SODIUM 40 MG/VIAL IV SCH (08:41)
[2017-12-06] MEDS: CLOPIDOGREL 75MG TABLET PO SCH (08:41)
[2017-12-06] MEDS: DOCUSATE SODIUM 250MG CAPSULE PO SCH (08:41)
[2017-12-06] MEDS: ASPIRIN 81MG EC TABLET PO SCH (08:41)
[2017-12-06] MEDS: ALBUTEROL (0.5%) 2.5MG/0.5ML NEB HHN SCH ×2 (08:58→12:06)
[2017-12-06 09:48] LABS: BASOPHILS % 1.2 % (0.0-2.0); EOSINOPHILS % 2.6 % (0.0-5.0); HEMATOCRIT. 25.9 % (36.0-48.0); HEMOGLOBIN. 8.6 g/dL (12.0-16.0); LYMPHOCYTES % 26.1 % (20.0-50.0); MEAN CORPUSCULAR HEMOGLOBIN 28.9 pg (28.0-32.0); MEAN CORPUSCULAR VOLUME 86.9 fL (81.0-99.0); MEAN PLATELET VOLUME 7.8 fl (7.4-10.4); MONOCYTES % 7.5 % (2.0-8.0); NEUTROPHILS % 62.6 % (40.0-76.0); PLATELET 405 x1000/uL (130-400); RED BLOOD CELL COUNT 2.99 mill/uL (4.2-5.4); RED CELL DISTRIBUTION WIDTH 16.1 % (11.6-14.6)
[2017-12-06 13:06] VITALS: BP 126/67
== END 2017-12-06 14:15 | disposition home health service (06) | DRG 280 ==
LOC: 3WST 20:52 → 8WST 12-05 15:50
PROVIDERS: ADMIT Internal Medicine; ATTEND Internal Medicine
PROC: B2101ZZ Fluoroscopy of Single Coronary Artery using Low Osmolar Contrast (ICD-10-PCS; 2017-11-30)
PROC: 30233N1 Transfusion of Nonautologous Red Blood Cells into Peripheral Vein, Percutaneous Approach (ICD-10-PCS; 2017-11-30)
PROC: 0DB68ZX Excision of Stomach, Via Natural or Artificial Opening Endoscopic, Diagnostic (ICD-10-PCS; 2017-12-02)
PROC: 0DBP8ZX Excision of Rectum, Via Natural or Artificial Opening Endoscopic, Diagnostic (ICD-10-PCS; principal; 2017-12-02 09:00)
DX: I21.4 Non-ST elevation (NSTEMI) myocardial infarction (principal); K57.31 Diverticulosis of large intestine without perforation or abscess with bleeding; N17.9 Acute kidney failure, unspecified; I50.23 Acute on chronic systolic (congestive) heart failure; K29.71 Gastritis, unspecified, with bleeding; R64 Cachexia; I27.20 Pulmonary hypertension, unspecified; I13.0 Hypertensive heart and chronic kidney disease with heart failure and stage 1 through stage 4 chronic kidney disease, or unspecified chronic kidney disease; N39.0 Urinary tract infection, site not specified; I65.23 Occlusion and stenosis of bilateral carotid arteries; I25.5 Ischemic cardiomyopathy; J44.9 Chronic obstructive pulmonary disease, unspecified; Z96.641 Presence of right artificial hip joint; Z96.659 Presence of unspecified artificial knee joint; M19.90 Unspecified osteoarthritis, unspecified site; K64.9 Unspecified hemorrhoids; I25.110 Atherosclerotic heart disease of native coronary artery with unstable angina pectoris; E78.00 Pure hypercholesterolemia, unspecified; E78.5 Hyperlipidemia, unspecified; D64.9 Anemia, unspecified; I08.0 Rheumatic disorders of both mitral and aortic valves; N18.3 Chronic kidney disease, stage 3 (moderate); Z72.0 Tobacco use; Z95.5 Presence of coronary angioplasty implant and graft; Z82.49 Family history of ischemic heart disease and other diseases of the circulatory system; Z88.1 Allergy status to other antibiotic agents; Z88.8 Allergy status to other drugs, medicaments and biological substances; Z87.891 Personal history of nicotine dependence; Z68.24 Body mass index [BMI] 24.0-24.9, adult
CPT/HCPCS: 36415; 71045; 76770; 80048; 80053; 80061; 81003; 82270; 82550; 82553; 82570; 82607; 82728; 82746; 83540; 83550; 83735; 83880; 83935; 84100; 84300; 84439; 84443; 84481; 84484; 85025; 85027; 85379; 85610; 85730; 86850; 86900; 86920; 88305; 88312; 88313; 93005; 93454; 94618; 94640; 97110; 97116; 97162; 97166; 99152; 99153; A4216; C1769; C1887; C1893; C9113; J1644; J1940; J2250; J2270; J2405; J2543; J2920; J3010; J3490; J7040; J7050; J7611; J8597; P9016; Q9967

== ENCOUNTER 2018-04-26 11:23 | Inpatient (IN) | payer BC ==
[~2018-04-26] VITALS: Ht 170.2 cm; Wt 74.6 kg
[2018-04-26] MEDS ORDERED: ASPIRIN 81MG TABLET PO ONE (12:00)
[2018-04-26 12:26] LABS: BASOPHILS % 1.8 % (0.0-2.0); EOSINOPHILS % 2.7 % (0.0-5.0); LYMPHOCYTES % 25.2 % (20.0-50.0); MEAN CORPUSCULAR VOLUME 83.4 fL (81.0-99.0); MEAN PLATELET VOLUME 8.7 fl (7.4-10.4); MONOCYTES % 8.6 % (2.0-8.0); NEUTROPHILS % 61.7 % (40.0-76.0); PLATELET 256 x1000/uL (130-400); RED BLOOD CELL COUNT 3.83 mill/uL (4.2-5.4)
[2018-04-26 12:37] LABS: CHLORIDE 106 mEq/L (98-107)
[2018-04-26 12:58] LABS: INR 1.2; PARTIAL THROMBOPLASTIN TIME 26.2 sec (23.4-31.0); PROTHROMBIN TIME 12.4 sec (9.1-11.1)
[2018-04-26] MEDS ORDERED: MAGNESIUM/ALUMINUM HYDROXIDE/SIMETHICONE 30ML UDC PO PRN (14:00)
[2018-04-26] MEDS ORDERED: PIPERACILLIN/TAZ 2.25G PREMIX 50 ML IV SCH (14:00)
[2018-04-26] MEDS ORDERED: DIPHENHYDRAMINE 50MG/ML VIAL IV PRN (14:00)
[2018-04-26] MEDS ORDERED: ONDANSETRON HCL 4MG/2ML INJ IV PRN (14:00)
[2018-04-26] MEDS: HYDRALAZINE HCL 25MG TABLET PO SCH ×2 (14:00→21:54)
[2018-04-26] MEDS ORDERED: ACETAMINOPHEN 650MG SUPP PR PRN (14:00)
[2018-04-26] MEDS ORDERED: NA PHOS,M-B/NA PHOS,DI-BA ENEMA 118ML PR PRN (14:00)
[2018-04-26] MEDS ORDERED: NITROGLYCERIN OINT 1GM/INCH UDPKT TD ONE ×2 (14:15→15:00)
[2018-04-26] MEDS ORDERED: FUROSEMIDE 40MG/4ML VIAL IV ONE ×2 (14:15→15:00)
[2018-04-26 14:20] LABS: BG BASE EXCESS -6.1 mmol/L (-2.0-2.0); BG CARBOXYHEMOGLOBIN 0.7 % (0.5-1.5); BG DEOXYHEMOGLOBIN 1.2 % (0.0-5.0); BG HCO3 ACT 16.9 mmol/L (22.0-26.0); BG METHEMOGLOBIN 0.3 % (0.0-1.5); BG OXYGEN SATURATION 98.8 % (92.0-98.5); BG OXYHEMOGLOBIN 97.8 % (94.0-97.0); BG PCO2 25.8 mmHg (35.0-45.0); BG PH 7.434 (7.350-7.450); BG PO2 131.9 mmHg (75.0-100.0); BG SAMPLE SITE RIGHT RADIAL; BG TOTAL HEMOGLOBIN 10.2 g/dL (12.0-18.0); BG VENT MODE NASAL CANNULA
[2018-04-26] MEDS ORDERED: AZITHROMYCIN 500 MG in DEXT 5% WATER 250 ML IV SCH (15:00)
[2018-04-26] MEDS ORDERED: CEFTRIAXONE 1 G PREMIX 50 ML IV ONE (15:00)
[2018-04-26] MEDS ORDERED: ASPIRIN 81MG EC TABLET PO NR (15:30)
[2018-04-26 16:55] VITALS: BP 128/77
[2018-04-26] MEDS ORDERED: PNEUMOCOCCAL 23-VAL P-SAC VAC 0.5 ML IM ONE (17:15)
[2018-04-26] MEDS: CARVEDILOL 6.25 MG TABLET PO SCH (18:16)
[2018-04-26] MEDS: FUROSEMIDE 40MG/4ML VIAL IVP SCH (18:16)
[2018-04-26 20:14] VITALS: BP 122/61
[2018-04-26] MEDS: ATORVASTATIN CALCIUM 10MG TABLET PO SCH (21:54)
[2018-04-26] MEDS ORDERED: CEFTRIAXONE 1 G PREMIX 50 ML IV NR (23:30)
[2018-04-27] VITALS: BP 111/63
[2018-04-27] MEDS ORDERED: AZITHROMYCIN 500 MG in DEXT 5% WATER 250 ML IV SCH ×2
[2018-04-27 04:00] VITALS: BP 144/62
[2018-04-27] MEDS: HYDRALAZINE HCL 25MG TABLET PO SCH ×3 (05:48→21:02)
[2018-04-27 08:00] VITALS: BP 108/65
[2018-04-27] MEDS: CARVEDILOL 6.25 MG TABLET PO SCH ×2 (08:39→17:22)
[2018-04-27] MEDS: FUROSEMIDE 40MG/4ML VIAL IVP SCH ×2 (08:39→17:22)
[2018-04-27 08:45] LABS: HEMATOCRIT. 29.7 % (36.0-48.0); HEMOGLOBIN. 9.4 g/dL (12.0-16.0); MEAN CORPUSCULAR VOLUME 82.3 fL (81.0-99.0); MEAN PLATELET VOLUME 9.1 fl (7.4-10.4); PLATELET 235 x1000/uL (130-400); RED BLOOD CELL COUNT 3.61 mill/uL (4.2-5.4); RED CELL DISTRIBUTION WIDTH 18.6 % (11.6-14.6)
[2018-04-27 08:47] LABS: CHLORIDE 106 mEq/L (98-107)
[2018-04-27] MEDS: CLOPIDOGREL 75MG TABLET PO SCH (08:50)
[2018-04-27] MEDS: HYDROCODONE/ACETAMINOPHEN 5/325MG TABLET PO PRN (08:51)
[2018-04-27] MEDS ORDERED: METOLAZONE 2.5MG TABLET PO NR (10:45)
[2018-04-27 12:00] VITALS: BP 101/57
[2018-04-27 16:00] VITALS: BP 111/69
[2018-04-27 20:00] VITALS: BP 103/66
[2018-04-27] MEDS: AZITHROMYCIN 500 MG in DEXT 5% WATER 250 ML IV SCH (20:51)
[2018-04-27] MEDS: CEFTRIAXONE 1 G PREMIX 50 ML IV SCH (20:51)
[2018-04-27] MEDS: ATORVASTATIN CALCIUM 10MG TABLET PO SCH (20:52)
[2018-04-28] VITALS (8 sets, daily range): BP systolic 80–122; BP diastolic 54–90
[2018-04-28] MEDS ORDERED: SODIUM CHLORIDE 0.45% 250 ML IV ONE
[2018-04-28] MEDS: BUDESONIDE 0.5MG/2ML NEB HHN SCH ×3 (00:30→21:42)
[2018-04-28] MEDS ORDERED: SODIUM CHLORIDE 0.9% 250 ML IV ONE ×2 (00:30→01:30)
[2018-04-28] MEDS: IPRATROPIUM/ALBUTEROL 0.5-3(2.5)MG/3ML NEB INH PRN ×3 (00:31→21:43)
[2018-04-28] MEDS ORDERED: SODIUM CHLORIDE 0.45% 250 ML IV SCH (01:00)
[2018-04-28] MEDS: HYDRALAZINE HCL 25MG TABLET PO SCH ×3 (06:00→22:00)
[2018-04-28 07:39] LABS: HEMATOCRIT 29.8 % (36.0-48.0); HEMOGLOBIN 9.6 g/dL (12.0-16.0); MEAN CORPUSCULAR HEMOGLOBIN 26.6 pg (28.0-32.0); MEAN CORPUSCULAR VOLUME 82.9 fL (81.0-99.0); PLATELET 217 x1000/uL (130-400); RED BLOOD CELL COUNT 3.59 mill/uL (4.2-5.4); RED CELL DISTRIBUTION WIDTH 18.4 % (11.6-14.6)
[2018-04-28] MEDS: CLOPIDOGREL 75MG TABLET PO SCH (10:17)
[2018-04-28] MEDS: FUROSEMIDE 40MG/4ML VIAL IVP SCH ×2 (10:17→16:45)
[2018-04-28] MEDS: METOLAZONE 2.5MG TABLET PO SCH (10:18)
[2018-04-28] MEDS: CARVEDILOL 6.25 MG TABLET PO SCH ×2 (10:26→19:09)
[2018-04-28 13:28] LABS: PLATELET ESTIMATE NORMAL
[2018-04-28] MEDS: CEFTRIAXONE 1 G PREMIX 50 ML IV SCH (21:45)
[2018-04-28] MEDS: AZITHROMYCIN 500 MG in DEXT 5% WATER 250 ML IV SCH (21:45)
[2018-04-28] MEDS: ATORVASTATIN CALCIUM 10MG TABLET PO SCH (21:45)
[2018-04-28] MEDS: HYDROCODONE/ACETAMINOPHEN 5/325MG TABLET PO PRN (22:06)
[2018-04-29] VITALS: BP 96/51
[2018-04-29 04:00] VITALS: BP 104/60
[2018-04-29] MEDS: HYDRALAZINE HCL 25MG TABLET PO SCH (05:12)
[2018-04-29 07:35] LABS: HEMATOCRIT 30.3 % (36.0-48.0); HEMOGLOBIN 9.5 g/dL (12.0-16.0); MEAN CORPUSCULAR HEMOGLOBIN 26.2 pg (28.0-32.0); MEAN CORPUSCULAR VOLUME 83.4 fL (81.0-99.0); PLATELET 208 x1000/uL (130-400); RED BLOOD CELL COUNT 3.64 mill/uL (4.2-5.4); RED CELL DISTRIBUTION WIDTH 18.8 % (11.6-14.6)
[2018-04-29 08:00] VITALS: BP 112/70
[2018-04-29] MEDS: CLOPIDOGREL 75MG TABLET PO SCH (08:57)
[2018-04-29] MEDS: CARVEDILOL 6.25 MG TABLET PO SCH ×2 (08:57→16:45)
[2018-04-29] MEDS: FUROSEMIDE 40MG/4ML VIAL IVP SCH ×2 (08:57→16:45)
[2018-04-29] MEDS: METOLAZONE 2.5MG TABLET PO SCH (08:57)
[2018-04-29] MEDS: BUDESONIDE 0.5MG/2ML NEB HHN SCH (11:42)
[2018-04-29 12:00] VITALS: BP 107/66
[2018-04-29] MEDS: IPRATROPIUM/ALBUTEROL 0.5-3(2.5)MG/3ML NEB INH PRN (12:31)
[2018-04-29 16:00] VITALS: BP 117/71
[2018-04-29 20:00] VITALS: BP 111/56
[2018-04-29] MEDS: CEFTRIAXONE 1 G PREMIX 50 ML IV SCH (20:05)
[2018-04-29] MEDS: AZITHROMYCIN 500 MG in DEXT 5% WATER 250 ML IV SCH (20:31)
[2018-04-29] MEDS: ATORVASTATIN CALCIUM 10MG TABLET PO SCH (20:31)
[2018-04-29] MEDS: HYDROCODONE/ACETAMINOPHEN 5/325MG TABLET PO PRN (22:26)
[2018-04-30] VITALS (8 sets, daily range): BP systolic 99–121; BP diastolic 55–73
[2018-04-30 06:26] LABS: HEMATOCRIT. 29.8 % (36.0-48.0); HEMOGLOBIN. 9.5 g/dL (12.0-16.0); MEAN CORPUSCULAR VOLUME 81.9 fL (81.0-99.0); MEAN PLATELET VOLUME 8.9 fl (7.4-10.4); PLATELET 222 x1000/uL (130-400); RED BLOOD CELL COUNT 3.64 mill/uL (4.2-5.4); RED CELL DISTRIBUTION WIDTH 18.7 % (11.6-14.6)
[2018-04-30] MEDS: CLOPIDOGREL 75MG TABLET PO SCH (08:38)
[2018-04-30] MEDS: FUROSEMIDE 40MG/4ML VIAL IVP SCH (08:38)
[2018-04-30] MEDS: METOLAZONE 2.5MG TABLET PO SCH (08:39)
[2018-04-30] MEDS: CARVEDILOL 6.25 MG TABLET PO SCH ×2 (08:43→17:16)
[2018-04-30 12:21] LABS: CLARITY URINE CLEAR (CLEAR); COLOR URINE YELLOW (YELLOW); KETONES URINE NEGATIVE (NEGATIVE); LEUKOCYTE ESTERASE URINE TRACE (NEGATIVE); NITRITE URINE NEGATIVE (NEGATIVE); OCCULT BLOOD URINE 2+ (NEGATIVE); PROTEIN URINE NEGATIVE (NEGATIVE); SPECIFIC GRAVITY URINE 1.005 (1.005-1.030); UROBILINOGEN URINE 0.2 E.U./dL (0.2-1.0)
[2018-04-30] MEDS: FLUCONAZOLE 200MG TABLET PO SCH (13:51)
[2018-04-30 14:21] LABS: PLATELET ESTIMATE NORMAL
[2018-04-30] MEDS: FUROSEMIDE 80MG TABLET PO SCH (17:16)
[2018-04-30] MEDS: ATORVASTATIN CALCIUM 10MG TABLET PO SCH (20:55)
[2018-04-30] MEDS: CEFTRIAXONE 1 G PREMIX 50 ML IV SCH (20:55)
[2018-04-30] MEDS: AZITHROMYCIN 500 MG in DEXT 5% WATER 250 ML IV SCH (21:39)
[2018-04-30] MEDS: HYDROCODONE/ACETAMINOPHEN 5/325MG TABLET PO PRN (21:41)
[2018-05-01] VITALS: BP 110/61
[2018-05-01 04:00] VITALS: BP 117/73
[2018-05-01 07:47] LABS: HEMATOCRIT 27.8 % (36.0-48.0); MEAN CORPUSCULAR HEMOGLOBIN 26.5 pg (28.0-32.0); MEAN CORPUSCULAR VOLUME 81.5 fL (81.0-99.0); PLATELET 222 x1000/uL (130-400); RED BLOOD CELL COUNT 3.41 mill/uL (4.2-5.4); RED CELL DISTRIBUTION WIDTH 18.7 % (11.6-14.6)
[2018-05-01 08:19] VITALS: BP 112/68
[2018-05-01] MEDS: CLOPIDOGREL 75MG TABLET PO SCH (08:28)
[2018-05-01] MEDS: FLUCONAZOLE 200MG TABLET PO SCH (08:28)
[2018-05-01] MEDS: METOLAZONE 2.5MG TABLET PO SCH (08:29)
[2018-05-01] MEDS: FUROSEMIDE 80MG TABLET PO SCH ×2 (08:29→16:25)
[2018-05-01] MEDS: CARVEDILOL 6.25 MG TABLET PO SCH ×2 (08:29→16:25)
[2018-05-01 12:00] VITALS: BP 101/67
[2018-05-01 16:00] VITALS: BP 102/63
[2018-05-01 20:00] VITALS: BP 112/62
[2018-05-01] MEDS: ATORVASTATIN CALCIUM 10MG TABLET PO SCH (21:15)
[2018-05-01] MEDS: CEFTRIAXONE 1 G PREMIX 50 ML IV SCH (21:16)
[2018-05-01] MEDS: ACETAMINOPHEN 325MG TABLET PO PRN (21:42)
[2018-05-01] MEDS: AZITHROMYCIN 500 MG in DEXT 5% WATER 250 ML IV SCH (21:56)
[2018-05-02] VITALS: BP 100/57
[2018-05-02] MEDS: HYDROCODONE/ACETAMINOPHEN 5/325MG TABLET PO PRN ×3 (00:52→16:46)
[2018-05-02 04:00] VITALS: BP 112/73
[2018-05-02 07:00] LABS: INR 1.1; PARTIAL THROMBOPLASTIN TIME 27.8 sec (23.4-31.0); PROTHROMBIN TIME 11.5 sec (9.1-11.1)
[2018-05-02 07:21] LABS: BASOPHILS % 1.5 % (0.0-2.0); EOSINOPHILS % 3.9 % (0.0-5.0); HEMATOCRIT. 28.6 % (36.0-48.0); HEMOGLOBIN. 9.3 g/dL (12.0-16.0); LYMPHOCYTES % 22.9 % (20.0-50.0); MEAN CORPUSCULAR HEMOGLOBIN 26.4 pg (28.0-32.0); MEAN CORPUSCULAR VOLUME 81.1 fL (81.0-99.0); MEAN PLATELET VOLUME 9.1 fl (7.4-10.4); MONOCYTES % 12.4 % (2.0-8.0); NEUTROPHILS % 59.3 % (40.0-76.0); PLATELET 239 x1000/uL (130-400); RED BLOOD CELL COUNT 3.53 mill/uL (4.2-5.4); RED CELL DISTRIBUTION WIDTH 18.2 % (11.6-14.6)
[2018-05-02 07:28] LABS: HEPATITIS B SURFACE ANTIGEN NEGATIVE
[2018-05-02] MEDS: CARVEDILOL 6.25 MG TABLET PO SCH (09:00)
[2018-05-02] MEDS: FLUCONAZOLE 200MG TABLET PO SCH (09:38)
[2018-05-02] MEDS: FOLIC ACID/VITAMIN B COMP W-C TABLET PO SCH (09:38)
[2018-05-02] MEDS: FUROSEMIDE 80MG TABLET PO SCH ×2 (09:38→16:46)
[2018-05-02] MEDS: METOLAZONE 2.5MG TABLET PO SCH (09:38)
[2018-05-02 11:44] VITALS: BP 105/68
[2018-05-02 16:00] VITALS: BP 113/67
[2018-05-02 20:00] VITALS: BP 123/74
[2018-05-02] MEDS: EPOETIN ALFA 4000UNITS/ML VIAL SUBCUT SCH (21:07)
[2018-05-02] MEDS: CARVEDILOL 3.125 MG TABLET PO SCH (21:08)
[2018-05-02] MEDS: ATORVASTATIN CALCIUM 10MG TABLET PO SCH (21:10)
[2018-05-03] VITALS: BP 106/64
[2018-05-03] MEDS: HYDROCODONE/ACETAMINOPHEN 5/325MG TABLET PO PRN ×2 (00:12→11:21)
[2018-05-03 04:00] VITALS: BP 104/55
[2018-05-03 07:03] LABS: BASOPHILS % 2.4 % (0.0-2.0); EOSINOPHILS % 3.1 % (0.0-5.0); HEMATOCRIT. 27.2 % (36.0-48.0); HEMOGLOBIN. 8.8 g/dL (12.0-16.0); LYMPHOCYTES % 25.6 % (20.0-50.0); MEAN CORPUSCULAR HEMOGLOBIN 26.3 pg (28.0-32.0); MEAN CORPUSCULAR VOLUME 80.7 fL (81.0-99.0); MEAN PLATELET VOLUME 8.9 fl (7.4-10.4); NEUTROPHILS % 55.9 % (40.0-76.0); PLATELET 172 x1000/uL (130-400); RED BLOOD CELL COUNT 3.37 mill/uL (4.2-5.4); RED CELL DISTRIBUTION WIDTH 18.6 % (11.6-14.6)
[2018-05-03 08:00] VITALS: BP 104/66
[2018-05-03] MEDS: FOLIC ACID/VITAMIN B COMP W-C TABLET PO SCH (08:24)
[2018-05-03] MEDS: CLOPIDOGREL 75MG TABLET PO SCH (08:24)
[2018-05-03] MEDS: METOLAZONE 2.5MG TABLET PO SCH (08:24)
[2018-05-03] MEDS: FLUCONAZOLE 200MG TABLET PO SCH (08:24)
[2018-05-03 08:25] LABS: PHOSPHORUS 5.1 mg/dL (2.5-4.9)
[2018-05-03] MEDS: FUROSEMIDE 80MG TABLET PO SCH ×2 (09:00→16:42)
[2018-05-03] MEDS: CARVEDILOL 3.125 MG TABLET PO SCH ×2 (09:00→20:25)
[2018-05-03] MEDS ORDERED: POTASSIUM CHLORIDE 10MEQ TABLET SR PO NR (09:15)
[2018-05-03 12:00] VITALS: BP 114/60
[2018-05-03] MEDS ORDERED: POTASSIUM CHLORIDE 20MEQ TABLET SR PO NR (12:30)
[2018-05-03 16:00] VITALS: BP 102/64
[2018-05-03 19:57] VITALS: BP 95/54
[2018-05-03] MEDS: ATORVASTATIN CALCIUM 10MG TABLET PO SCH (20:25)
[2018-05-04] VITALS: BP_SYST 118; BP_SYST 99; BP_DIAS 59; BP_DIAS 69
[2018-05-04 04:00] VITALS: BP 111/79
[2018-05-04 07:30] LABS: BASOPHILS % 2.6 % (0.0-2.0); HEMATOCRIT. 31.3 % (36.0-48.0); HEMOGLOBIN. 9.9 g/dL (12.0-16.0); MEAN CORPUSCULAR VOLUME 82.3 fL (81.0-99.0); MEAN PLATELET VOLUME 8.9 fl (7.4-10.4); MONOCYTES % 13.4 % (2.0-8.0); PLATELET 139 x1000/uL (130-400); RED CELL DISTRIBUTION WIDTH 18.5 % (11.6-14.6)
[2018-05-04 08:50] LABS: PHOSPHORUS 5.3 mg/dL (2.5-4.9)
[2018-05-04] MEDS: CLOPIDOGREL 75MG TABLET PO SCH (08:54)
[2018-05-04] MEDS: METOLAZONE 2.5MG TABLET PO SCH (08:55)
[2018-05-04] MEDS: FLUCONAZOLE 200MG TABLET PO SCH (08:55)
[2018-05-04] MEDS: FOLIC ACID/VITAMIN B COMP W-C TABLET PO SCH (08:57)
[2018-05-04] MEDS: CARVEDILOL 3.125 MG TABLET PO SCH ×2 (09:00→20:42)
[2018-05-04 12:00] VITALS: BP 102/62
[2018-05-04] MEDS ORDERED: BISACODYL 5MG TABLET PO PRN (12:45)
[2018-05-04 13:43] LABS: HEPATITIS B SURFACE ANTIGEN NEGATIVE
[2018-05-04 14:12] LABS: HEPATITIS B CORE AB IGM NEGATIVE
[2018-05-04 14:13] LABS: HEPATITIS A AB IGM NEGATIVE (NEGATIVE)
[2018-05-04 16:00] VITALS: BP 104/62
[2018-05-04] MEDS: IPRATROPIUM/ALBUTEROL 0.5-3(2.5)MG/3ML NEB INH PRN (16:15)
[2018-05-04 20:00] VITALS: BP 112/61
[2018-05-04] MEDS: ATORVASTATIN CALCIUM 10MG TABLET PO SCH (20:42)
[2018-05-04] MEDS: EPOETIN ALFA 4000UNITS/ML VIAL SUBCUT SCH (20:48)
[2018-05-05 00:10] VITALS: BP 108/56
[2018-05-05 04:00] VITALS: BP 109/71
[2018-05-05 07:34] LABS: CHLORIDE 98 mEq/L (98-107)
[2018-05-05 07:47] LABS: HDL CHOLESTEROL 30 mg/dL (40-59); LDL CHOLESTEROL 98 mg/dL (5-100)
[2018-05-05 08:00] VITALS: BP 111/65
[2018-05-05] MEDS: CARVEDILOL 3.125 MG TABLET PO SCH ×2 (08:57→21:12)
[2018-05-05] MEDS: CLOPIDOGREL 75MG TABLET PO SCH (08:58)
[2018-05-05] MEDS: FLUCONAZOLE 200MG TABLET PO SCH (08:58)
[2018-05-05] MEDS: METOLAZONE 2.5MG TABLET PO SCH (08:58)
[2018-05-05] MEDS: FOLIC ACID/VITAMIN B COMP W-C TABLET PO SCH (08:58)
[2018-05-05 12:00] VITALS: BP 111/63
[2018-05-05 16:00] VITALS: BP 133/71
[2018-05-05 20:00] VITALS: BP 111/62
[2018-05-05] MEDS: FUROSEMIDE 40MG TABLET PO SCH (21:12)
[2018-05-05] MEDS: ATORVASTATIN CALCIUM 10MG TABLET PO SCH (21:12)
[2018-05-06] VITALS: BP 124/73
[2018-05-06] MEDS: HYDROCODONE/ACETAMINOPHEN 5/325MG TABLET PO PRN (01:31)
[2018-05-06 04:00] VITALS: BP 111/69
[2018-05-06] MEDS: CLOPIDOGREL 75MG TABLET PO SCH (06:39)
[2018-05-06 06:57] LABS: HEMATOCRIT. 27.5 % (36.0-48.0); HEMOGLOBIN. 8.9 g/dL (12.0-16.0); MEAN CORPUSCULAR HEMOGLOBIN 26.3 pg (28.0-32.0); MEAN CORPUSCULAR VOLUME 80.9 fL (81.0-99.0); PLATELET 81 x1000/uL (130-400); RED CELL DISTRIBUTION WIDTH 18.7 % (11.6-14.6)
[2018-05-06 07:04] LABS: INR 1.3; PARTIAL THROMBOPLASTIN TIME 28.6 sec (23.4-31.0); PROTHROMBIN TIME 12.6 sec (9.1-11.1)
[2018-05-06 08:00] VITALS: BP 123/77
[2018-05-06] MEDS: FLUCONAZOLE 200MG TABLET PO SCH ×2 (09:00→15:41)
[2018-05-06] MEDS: METOLAZONE 2.5MG TABLET PO SCH ×2 (09:00→15:40)
[2018-05-06] MEDS: FOLIC ACID/VITAMIN B COMP W-C TABLET PO SCH ×2 (09:00→15:40)
[2018-05-06] MEDS: CARVEDILOL 3.125 MG TABLET PO SCH ×2 (09:00→20:51)
[2018-05-06] MEDS: FUROSEMIDE 40MG TABLET PO SCH ×3 (09:00→20:53)
[2018-05-06 10:25] LABS: PLATELET ESTIMATE DECREASED
[2018-05-06 12:00] VITALS: BP 106/64
[2018-05-06] MEDS ORDERED: CLOPIDOGREL 75MG TABLET PO NR (15:45)
[2018-05-06 16:00] VITALS: BP 101/64
[2018-05-06 20:00] VITALS: BP 103/62
[2018-05-06] MEDS: ATORVASTATIN CALCIUM 10MG TABLET PO SCH (20:53)
[2018-05-07] VITALS: BP 102/57
[2018-05-07 04:00] VITALS: BP 112/69
[2018-05-07 06:56] LABS: HEPATITIS B SURFACE AB < 3.1 mIU/mL
[2018-05-07 07:18] LABS: HEMOGLOBIN. 9.3 g/dL (12.0-16.0); MEAN CORPUSCULAR VOLUME 80.8 fL (81.0-99.0); MEAN PLATELET VOLUME 9.7 fl (7.4-10.4); PLATELET 104 x1000/uL (130-400); RED BLOOD CELL COUNT 3.59 mill/uL (4.2-5.4); RED CELL DISTRIBUTION WIDTH 18.7 % (11.6-14.6)
[2018-05-07 07:36] LABS: HEPATITIS B CORE AB IGM NEGATIVE
[2018-05-07 08:00] VITALS: BP 128/68
[2018-05-07] MEDS: FLUCONAZOLE 200MG TABLET PO SCH (08:22)
[2018-05-07] MEDS: FOLIC ACID/VITAMIN B COMP W-C TABLET PO SCH (08:22)
[2018-05-07] MEDS: METOLAZONE 2.5MG TABLET PO SCH (08:22)
[2018-05-07] MEDS: FUROSEMIDE 40MG TABLET PO SCH ×2 (08:22→21:13)
[2018-05-07] MEDS: CARVEDILOL 3.125 MG TABLET PO SCH ×2 (08:27→21:14)
[2018-05-07] MEDS ORDERED: SODIUM BICARBONATE 4% (2.4MEQ) 5ML VIAL IV ONE ×2 (09:46)
[2018-05-07] MEDS ORDERED: LIDOCAINE HCL 1% 20ML VIAL (Pyxis) INJ ONE ×2 (09:46)
[2018-05-07] MEDS ORDERED: FENTANYL CITRATE/PF 50MCG/ML 2ML VIAL ONE (10:17)
[2018-05-07] MEDS ORDERED: MIDAZOLAM HCL 2 MG/2 ML VIAL ONE (10:17)
[2018-05-07] MEDS ORDERED: FENTANYL CITRATE/PF 50MCG/ML 2ML VIAL IV ONE (10:30)
[2018-05-07] MEDS ORDERED: CEFAZOLIN 1000MG PREMIX 50 ML IV ONE (10:30)
[2018-05-07] MEDS ORDERED: MIDAZOLAM HCL 5 MG/5 ML VIAL IV ONE (10:30)
[2018-05-07 12:00] VITALS: BP 122/75
[2018-05-07 14:17] LABS: PLATELET ESTIMATE DECREASED
[2018-05-07 15:19] LABS: BG BASE EXCESS -2.8 mmol/L (-2.0-2.0); BG CARBOXYHEMOGLOBIN 0.3 % (0.5-1.5); BG DEOXYHEMOGLOBIN 1.7 % (0.0-5.0); BG HCO3 ACT 21.2 mmol/L (22.0-26.0); BG METHEMOGLOBIN 0.3 % (0.0-1.5); BG OXYGEN SATURATION 98.3 % (92.0-98.5); BG OXYHEMOGLOBIN 97.7 % (94.0-97.0); BG PCO2 33.8 mmHg (35.0-45.0); BG PH 7.416 (7.350-7.450); BG SAMPLE SITE RIGHT BRACHIAL; BG TOTAL HEMOGLOBIN 9.8 g/dL (12.0-18.0); BG VENT MODE NASAL CANNULA
[2018-05-07 16:00] VITALS: BP 112/69
[2018-05-07 20:00] VITALS: BP 123/73
[2018-05-07] MEDS: ATORVASTATIN CALCIUM 10MG TABLET PO SCH (21:14)
[2018-05-07] MEDS ORDERED: CLOPIDOGREL 75MG TABLET PO NR (21:15)
[2018-05-07] MEDS: EPOETIN ALFA 4000UNITS/ML VIAL SUBCUT SCH (21:18)
[2018-05-07] MEDS: HYDROCODONE/ACETAMINOPHEN 5/325MG TABLET PO PRN (21:32)
[2018-05-08] VITALS (7 sets, daily range): BP systolic 89–113; BP diastolic 46–66
[2018-05-08 07:47] LABS: HEMATOCRIT 28.7 % (36.0-48.0); MEAN CORPUSCULAR HEMOGLOBIN 25.6 pg (28.0-32.0); MEAN CORPUSCULAR VOLUME 81.3 fL (81.0-99.0); PLATELET 90 x1000/uL (130-400); RED BLOOD CELL COUNT 3.53 mill/uL (4.2-5.4); RED CELL DISTRIBUTION WIDTH 18.9 % (11.6-14.6)
[2018-05-08] MEDS: METOLAZONE 2.5MG TABLET PO SCH (08:31)
[2018-05-08] MEDS: FOLIC ACID/VITAMIN B COMP W-C TABLET PO SCH (08:31)
[2018-05-08] MEDS: CLOPIDOGREL 75MG TABLET PO SCH (08:31)
[2018-05-08] MEDS: FUROSEMIDE 40MG TABLET PO SCH ×2 (08:31→21:07)
[2018-05-08] MEDS: CARVEDILOL 3.125 MG TABLET PO SCH ×2 (08:31→21:07)
[2018-05-08 08:42] LABS: BG BASE EXCESS -0.8 mmol/L (-2.0-2.0); BG CARBOXYHEMOGLOBIN 0.5 % (0.5-1.5); BG DEOXYHEMOGLOBIN 3.7 % (0.0-5.0); BG FRACTION INSPIRED OXYGEN 21; BG HCO3 ACT 22.7 mmol/L (22.0-26.0); BG METHEMOGLOBIN 0.3 % (0.0-1.5); BG OXYGEN SATURATION 96.3 % (92.0-98.5); BG OXYHEMOGLOBIN 95.5 % (94.0-97.0); BG PCO2 33.2 mmHg (35.0-45.0); BG PH 7.452 (7.350-7.450); BG PO2 87.8 mmHg (75.0-100.0); BG SAMPLE SITE RIGHT RADIAL; BG TOTAL HEMOGLOBIN 10.1 g/dL (12.0-18.0); BG VENT MODE ROOM AIR
[2018-05-08] MEDS ORDERED: CLOPIDOGREL 75MG TABLET PO SCH ×2 (10:30→16:00)
[2018-05-08] MEDS: ATORVASTATIN CALCIUM 10MG TABLET PO SCH (21:07)
[2018-05-08] MEDS: HYDROCODONE/ACETAMINOPHEN 5/325MG TABLET PO PRN (23:58)
[2018-05-09 04:00] VITALS: BP 109/60
[2018-05-09] MEDS: METOLAZONE 2.5MG TABLET PO SCH (08:16)
[2018-05-09] MEDS: CLOPIDOGREL 75MG TABLET PO SCH (08:16)
[2018-05-09] MEDS: FOLIC ACID/VITAMIN B COMP W-C TABLET PO SCH (08:16)
[2018-05-09] MEDS: CARVEDILOL 3.125 MG TABLET PO SCH ×2 (08:17→21:05)
[2018-05-09] MEDS: FUROSEMIDE 40MG TABLET PO SCH ×2 (08:17→21:05)
[2018-05-09 08:20] VITALS: BP 109/59
[2018-05-09 12:00] VITALS: BP 106/68
[2018-05-09] MEDS ORDERED: HEPARIN SODIUM 1,000 UNIT/1ML VIAL IV SCH (12:00)
[2018-05-09 16:49] VITALS: BP 103/67
[2018-05-09 20:39] VITALS: BP 109/58
[2018-05-09] MEDS: ATORVASTATIN CALCIUM 10MG TABLET PO SCH (21:05)
[2018-05-09] MEDS: EPOETIN ALFA 4000UNITS/ML VIAL SUBCUT SCH (21:06)
[2018-05-09] MEDS: HYDROCODONE/ACETAMINOPHEN 5/325MG TABLET PO PRN (23:59)
[2018-05-10] VITALS: BP 128/70
[2018-05-10 04:00] VITALS: BP 107/54
[2018-05-10 07:52] LABS: HEMATOCRIT 27.6 % (36.0-48.0); HEMOGLOBIN 8.7 g/dL (12.0-16.0); MEAN CORPUSCULAR HEMOGLOBIN 25.7 pg (28.0-32.0); PLATELET 104 x1000/uL (130-400); RED BLOOD CELL COUNT 3.41 mill/uL (4.2-5.4); RED CELL DISTRIBUTION WIDTH 18.8 % (11.6-14.6)
[2018-05-10 08:00] VITALS: BP 117/64
[2018-05-10] MEDS: FOLIC ACID/VITAMIN B COMP W-C TABLET PO SCH (09:08)
[2018-05-10] MEDS: CARVEDILOL 3.125 MG TABLET PO SCH ×2 (09:08→21:00)
[2018-05-10] MEDS: CLOPIDOGREL 75MG TABLET PO SCH (09:08)
[2018-05-10] MEDS: METOLAZONE 2.5MG TABLET PO SCH (09:08)
[2018-05-10] MEDS: FUROSEMIDE 40MG TABLET PO SCH ×2 (09:08→21:00)
[2018-05-10 12:00] VITALS: BP 106/55
[2018-05-10] MEDS: IPRATROPIUM/ALBUTEROL 0.5-3(2.5)MG/3ML NEB INH PRN (12:31)
[2018-05-10 16:00] VITALS: BP 106/70
[2018-05-10 20:00] VITALS: BP 101/58
[2018-05-10] MEDS: ATORVASTATIN CALCIUM 10MG TABLET PO SCH (21:20)
[2018-05-11] VITALS (7 sets, daily range): BP systolic 100–120; BP diastolic 62–75
[2018-05-11] MEDS: METOLAZONE 2.5MG TABLET PO SCH (08:44)
[2018-05-11] MEDS: FUROSEMIDE 40MG TABLET PO SCH ×2 (08:44→22:21)
[2018-05-11] MEDS: CARVEDILOL 3.125 MG TABLET PO SCH ×2 (08:44→22:21)
[2018-05-11] MEDS: IPRATROPIUM/ALBUTEROL 0.5-3(2.5)MG/3ML NEB INH PRN (08:59)
[2018-05-11] MEDS: CLOPIDOGREL 75MG TABLET PO SCH (09:06)
[2018-05-11] MEDS: FOLIC ACID/VITAMIN B COMP W-C TABLET PO SCH (09:06)
[2018-05-11] MEDS ORDERED: ALPRAZOLAM 0.25 MG TABLET PO NR (11:13)
[2018-05-11] MEDS ORDERED: ALPRAZOLAM 0.25 MG TABLET PO PRN (20:15)
[2018-05-11 21:07] LABS: BG BASE EXCESS -2.8 mmol/L (-2.0-2.0); BG CARBOXYHEMOGLOBIN 0.6 % (0.5-1.5); BG DEOXYHEMOGLOBIN 2.8 % (0.0-5.0); BG FRACTION INSPIRED OXYGEN 21; BG HCO3 ACT 20.2 mmol/L (22.0-26.0); BG METHEMOGLOBIN 0.4 % (0.0-1.5); BG OXYGEN SATURATION 97.2 % (92.0-98.5); BG OXYHEMOGLOBIN 96.2 % (94.0-97.0); BG PCO2 28.8 mmHg (35.0-45.0); BG PH 7.463 (7.350-7.450); BG PO2 94.4 mmHg (75.0-100.0); BG SAMPLE SITE RIGHT RADIAL; BG TOTAL HEMOGLOBIN 10.2 g/dL (12.0-18.0); BG VENT MODE ROOM AIR
[2018-05-11] MEDS: EPOETIN ALFA 4000UNITS/ML VIAL SUBCUT SCH (22:21)
[2018-05-11] MEDS: ATORVASTATIN CALCIUM 10MG TABLET PO SCH (22:21)
[2018-05-12] VITALS: BP 111/62
[2018-05-12 04:00] VITALS: BP 103/57
[2018-05-12 07:35] LABS: HEMOGLOBIN 9.1 g/dL (12.0-16.0); MEAN CORPUSCULAR HEMOGLOBIN 25.3 pg (28.0-32.0); MEAN CORPUSCULAR VOLUME 80.5 fL (81.0-99.0); PLATELET 126 x1000/uL (130-400); RED CELL DISTRIBUTION WIDTH 18.7 % (11.6-14.6)
[2018-05-12 08:00] VITALS: BP 104/72
[2018-05-12] MEDS: CLOPIDOGREL 75MG TABLET PO SCH (08:48)
[2018-05-12] MEDS: FUROSEMIDE 40MG TABLET PO SCH (08:48)
[2018-05-12] MEDS: METOLAZONE 2.5MG TABLET PO SCH (08:48)
[2018-05-12] MEDS: CARVEDILOL 3.125 MG TABLET PO SCH (08:48)
[2018-05-12] MEDS: FOLIC ACID/VITAMIN B COMP W-C TABLET PO SCH (08:48)
[2018-05-12] MEDS: ACETAMINOPHEN 325MG TABLET PO PRN (08:48)
[2018-05-12] MEDS ORDERED: GENTAMICIN 80MG PREMIX 100 ML IV ONE (10:45)
[2018-05-12] MEDS ORDERED: VANCOMYCIN 1 G PREMIX 200 ML IV ONE (10:45)
[2018-05-12 12:00] VITALS: BP 104/64
[2018-05-12] MEDS ORDERED: GENTAMICIN SULFATE 150 MG in SODIUM CHLORIDE 0.9% 100 ML IV NR (13:00)
[2018-05-12] MEDS ORDERED: VANCOMYCIN 1500MG in DEXTROSE 5% WATER 250ML IV NR (13:30)
[2018-05-12 16:00] VITALS: BP 105/64
[2018-05-12 16:38] VITALS: BP 105/64
[2018-06-03] MEDS ORDERED: CLOP75TA33 PO (15:33)
[2018-06-03] MEDS ORDERED: HYDR100T26 PO (15:33)
[2018-06-03] MEDS ORDERED: METO2.5T14 PO (15:33)
[2018-06-03] MEDS ORDERED: FURO40TA5 PO (15:33)
[2018-06-03] MEDS ORDERED: ALPR-339 PO (15:33)
[2018-06-03] MEDS ORDERED: FOLI0.8T23 PO (15:33)
[2018-06-03] MEDS ORDERED: SIMV40TA5 PO (15:33)
== END 2018-05-12 17:50 | disposition home or self-care (01) | DRG 291 ==
LOC: ER 11:30 → 8WST 15:03 → EDBEDREQTM 15:10 → EDBEDREQ 15:10 → ENRESERV 15:26
PROVIDERS: ADMIT Internal Medicine; ATTEND Internal Medicine
PROC: 02HV33Z Insertion of Infusion Device into Superior Vena Cava, Percutaneous Approach (ICD-10-PCS; principal; 2018-05-02)
PROC: B518ZZA Fluoroscopy of Superior Vena Cava, Guidance (ICD-10-PCS; 2018-05-02)
PROC: B548ZZA Ultrasonography of Superior Vena Cava, Guidance (ICD-10-PCS; 2018-05-02)
PROC: 5A1D70Z Performance of Urinary Filtration, Intermittent, Less than 6 Hours Per Day (ICD-10-PCS; 2018-05-02)
PROC: 5A1D70Z Performance of Urinary Filtration, Intermittent, Less than 6 Hours Per Day (ICD-10-PCS; 2018-05-03)
PROC: 5A1D70Z Performance of Urinary Filtration, Intermittent, Less than 6 Hours Per Day (ICD-10-PCS; 2018-05-04)
PROC: 5A1D70Z Performance of Urinary Filtration, Intermittent, Less than 6 Hours Per Day (ICD-10-PCS; 2018-05-05)
PROC: 02PYX3Z Removal of Infusion Device from Great Vessel, External Approach (ICD-10-PCS; 2018-05-07)
PROC: 02HV33Z Insertion of Infusion Device into Superior Vena Cava, Percutaneous Approach (ICD-10-PCS; 2018-05-07)
PROC: 0JH63XZ Insertion of Tunneled Vascular Access Device into Chest Subcutaneous Tissue and Fascia, Percutaneous Approach (ICD-10-PCS; 2018-05-07)
PROC: B518ZZA Fluoroscopy of Superior Vena Cava, Guidance (ICD-10-PCS; 2018-05-07)
PROC: 5A1D70Z Performance of Urinary Filtration, Intermittent, Less than 6 Hours Per Day (ICD-10-PCS; 2018-05-07)
PROC: 5A1D70Z Performance of Urinary Filtration, Intermittent, Less than 6 Hours Per Day (ICD-10-PCS; 2018-05-09)
DX: I13.2 Hypertensive heart and chronic kidney disease with heart failure and with stage 5 chronic kidney disease, or end stage renal disease (principal); N17.0 Acute kidney failure with tubular necrosis; J96.00 Acute respiratory failure, unspecified whether with hypoxia or hypercapnia; I50.43 Acute on chronic combined systolic (congestive) and diastolic (congestive) heart failure; N18.6 End stage renal disease; J44.0 Chronic obstructive pulmonary disease with (acute) lower respiratory infection; I42.0 Dilated cardiomyopathy; D64.9 Anemia, unspecified; I25.5 Ischemic cardiomyopathy; I73.9 Peripheral vascular disease, unspecified; I27.20 Pulmonary hypertension, unspecified; I25.10 Atherosclerotic heart disease of native coronary artery without angina pectoris; D69.6 Thrombocytopenia, unspecified; R20.2 Paresthesia of skin; F41.1 Generalized anxiety disorder; I95.9 Hypotension, unspecified; R33.9 Retention of urine, unspecified; I08.0 Rheumatic disorders of both mitral and aortic valves; E87.6 Hypokalemia; K57.90 Diverticulosis of intestine, part unspecified, without perforation or abscess without bleeding; E83.39 Other disorders of phosphorus metabolism; E78.5 Hyperlipidemia, unspecified; Z96.659 Presence of unspecified artificial knee joint; Z96.649 Presence of unspecified artificial hip joint; Z99.2 Dependence on renal dialysis; Z95.810 Presence of automatic (implantable) cardiac defibrillator; I25.2 Old myocardial infarction; Z87.891 Personal history of nicotine dependence; Z95.5 Presence of coronary angioplasty implant and graft; Z88.8 Allergy status to other drugs, medicaments and biological substances; Z88.1 Allergy status to other antibiotic agents
CPT/HCPCS: 36415; 36556; 36558; 36589; 36600; 71045; 76857; 76937; 77001; 80048; 80061; 82375; 82805; 83605; 83735; 83880; 84100; 84484; 85027; 85651; 86140; 86705; 86706; 86709; 86803; 87340; 93005; 93970; 93971; 94640; 97116; 97162; 97530; 99285; C1750; C1752; C1769; C1893; J0456; J0690; J0696; J0885; J1200; J1580; J1642; J1644; J1940; J2250; J2405; J3010; J3370; J3490; J7030; J7050; J7060; J7620; J7626; A4315

== ENCOUNTER 2019-04-23 19:00 | Inpatient (IN) | payer BC ==
[~2019-04-23] VITALS: Ht 170.2 cm; Wt 70.3 kg
[~2019-04-23 19:00] MED LIST changes: -AMLO10TA80 PO; +ASPI-1393 PO; -ATOR20TA65 PO; +CARV3.1242 PO; +CLOP75TA33 PO; -ERGO400C PO; -FISH1CAP2 PO; -FOLI-43 PO; +FOLI0.8T23 PO; -HYDR-4134 PO; +NEPVIT MT; -NISO40TA3 PO; +REN800 PO; +SIMV40TA5 PO
[2019-04-23] MEDS ORDERED: ONDANSETRON HCL 4MG/2ML INJ IV STA (20:43)
[2019-04-23] MEDS ORDERED: METHYLPREDNISOLONE SOD SUCC 125 MG/2 ML VIAL IV STA (20:43)
[2019-04-23] MEDS ORDERED: ALBUTEROL (0.083%) 2.5MG/3ML NEB HHN STA (20:43)
[2019-04-23] MEDS ORDERED: IPRATROPIUM BROMIDE (0.02%) 0.5MG/2.5ML NEB HHN STA (20:43)
[2019-04-23] MEDS ORDERED: FUROSEMIDE 20MG/2ML VIAL IVP ONE (20:45)
[2019-04-23 22:01] LABS: HEMATOCRIT. 34.8 % (36.0-48.0); HEMOGLOBIN. 11.4 g/dL (12.0-16.0); MEAN CORPUSCULAR HEMOGLOBIN 33.3 pg (28.0-32.0); MEAN CORPUSCULAR VOLUME 101.7 fL (81.0-99.0); MEAN PLATELET VOLUME 8.3 fl (7.4-10.4); MONOCYTES % 8.2 % (2.0-8.0); NEUTROPHILS % 77.8 % (40.0-76.0); PLATELET 216 x1000/uL (130-400); RED BLOOD CELL COUNT 3.42 mill/uL (4.2-5.4); RED CELL DISTRIBUTION WIDTH 16.5 % (11.6-14.6)
[2019-04-23 22:04] LABS: INR 1.1; PROTHROMBIN TIME 11.1 sec (9.6-11.0)
[2019-04-23 22:05] LABS: CHLORIDE 99 mEq/L (98-107)
[2019-04-24 00:03] LABS: BG BASE EXCESS 4.1 mmol/L (-2.0-2.0); BG CARBOXYHEMOGLOBIN 0.5 % (0.5-1.5); BG FRACTION INSPIRED OXYGEN 21; BG HCO3 ACT 23.4 mmol/L (22.0-26.0); BG METHEMOGLOBIN 0.2 % (0.0-1.5); BG OXYHEMOGLOBIN 97.3 % (94.0-97.0); BG PCO2 21.8 mmHg (35.0-45.0); BG PH 7.648 (7.350-7.450); BG PO2 89.6 mmHg (75.0-100.0); BG SAMPLE SITE LEFT RADIAL; BG TOTAL HEMOGLOBIN 12.5 g/dL (12.0-18.0); BG VENT MODE ROOM AIR
[2019-04-24 01:06] VITALS: BP 107/58
[2019-04-24] MEDS ORDERED: IPRATROPIUM/ALBUTEROL 0.5-3(2.5)MG/3ML NEB HHN PRN (03:45)
[2019-04-24 08:00] VITALS: BP 117/66
[2019-04-24] MEDS: SEVELAMER CARBONATE 800 MG TABLET PO SCH (08:43)
[2019-04-24] MEDS: FOLIC ACID/VITAMIN B COMP W-C TABLET PO SCH (08:43)
[2019-04-24] MEDS: FAMOTIDINE 20MG TABLET PO SCH (08:44)
[2019-04-24] MEDS: CARVEDILOL 3.125 MG TABLET PO SCH ×2 (08:44→20:29)
[2019-04-24] MEDS ORDERED: FAMOTIDINE 20MG TABLET PO SCH (09:00)
[2019-04-24] MEDS ORDERED: ASPIRIN 81MG TABLET PO SCH (09:00)
[2019-04-24] MEDS ORDERED: CLOPIDOGREL 75MG TABLET PO SCH (09:00)
[2019-04-24] MEDS ORDERED: HEPARIN 5000 UNITS/ML VIAL SUBCUT SCH (09:00)
[2019-04-24 10:30] LABS: HEMATOCRIT. 32.6 % (36.0-48.0); HEMOGLOBIN. 10.6 g/dL (12.0-16.0); MEAN CORPUSCULAR HEMOGLOBIN 33.2 pg (28.0-32.0); MEAN CORPUSCULAR VOLUME 101.7 fL (81.0-99.0); MEAN PLATELET VOLUME 8.5 fl (7.4-10.4); PLATELET 180 x1000/uL (130-400); RED CELL DISTRIBUTION WIDTH 16.7 % (11.6-14.6)
[2019-04-24 11:59] LABS: BG BASE EXCESS 1.4 mmol/L (-2.0-2.0); BG CARBOXYHEMOGLOBIN 0.1 % (0.5-1.5); BG DEOXYHEMOGLOBIN 1.8 % (0.0-5.0); BG FRACTION INSPIRED OXYGEN 28; BG HCO3 ACT 24.5 mmol/L (22.0-26.0); BG METHEMOGLOBIN 0.3 % (0.0-1.5); BG OXYGEN SATURATION 98.2 % (92.0-98.5); BG OXYHEMOGLOBIN 97.8 % (94.0-97.0); BG PCO2 33.6 mmHg (35.0-45.0); BG PO2 113.5 mmHg (75.0-100.0); BG SAMPLE SITE LEFT BRACHIAL; BG TOTAL HEMOGLOBIN 11.7 g/dL (12.0-18.0); BG VENT MODE NASAL CANNULA
[2019-04-24 12:00] VITALS: BP 123/72
[2019-04-24 14:13] LABS: PLATELET ESTIMATE NORMAL
[2019-04-24] MEDS ORDERED: ONDANSETRON HCL 4MG/2ML INJ IV PRN (15:45)
[2019-04-24] MEDS ORDERED: LORAZEPAM 2MG/ML CPJ IV PRN (15:45)
[2019-04-24] MEDS ORDERED: LACTULOSE 20G/30ML UDC PO PRN (15:45)
[2019-04-24] MEDS ORDERED: HYDRALAZINE 20MG/ML VIAL IV PRN (15:45)
[2019-04-24] MEDS ORDERED: HYDROCODONE/ACETAMINOPHEN 5/325MG TABLET PO PRN (15:45)
[2019-04-24] MEDS: IPRATROPIUM/ALBUTEROL 0.5-3(2.5)MG/3ML NEB HHN SCH ×2 (15:45→20:32)
[2019-04-24] MEDS ORDERED: CLONIDINE 0.1MG TABLET PO PRN (15:45)
[2019-04-24] MEDS ORDERED: DIPHENHYDRAMINE 50MG/ML VIAL IV PRN (15:45)
[2019-04-24] MEDS: BUDESONIDE 0.5MG/2ML NEB HHN SCH ×2 (15:48→20:32)
[2019-04-24 16:00] VITALS: BP 101/51
[2019-04-24] MEDS: DOCUSATE SODIUM 100MG CAPSULE PO SCH (16:25)
[2019-04-24] MEDS: FUROSEMIDE 40MG TABLET PO SCH (16:44)
[2019-04-24 20:00] VITALS: BP 100/59
[2019-04-24] MEDS: TEMAZEPAM 15MG CAPSULE PO PRN (21:17)
[2019-04-25] MEDS: IPRATROPIUM/ALBUTEROL 0.5-3(2.5)MG/3ML NEB HHN SCH ×4 (03:09→21:16)
[2019-04-25 04:00] VITALS: BP 109/64
[2019-04-25 06:40] LABS: MEAN CORPUSCULAR HEMOGLOBIN 33.6 pg (28.0-32.0); MEAN CORPUSCULAR VOLUME 101.2 fL (81.0-99.0); PLATELET 180 x1000/uL (130-400); RED BLOOD CELL COUNT 3.26 mill/uL (4.2-5.4); RED CELL DISTRIBUTION WIDTH 16.6 % (11.6-14.6)
[2019-04-25 07:52] LABS: CHLORIDE 98 mEq/L (98-107)
[2019-04-25 08:00] VITALS: BP_SYST 109; BP_DIAS 59; BP_DIAS 64
[2019-04-25] MEDS: SEVELAMER CARBONATE 800 MG TABLET PO SCH (08:53)
[2019-04-25] MEDS: CARVEDILOL 3.125 MG TABLET PO SCH ×2 (08:53→20:56)
[2019-04-25] MEDS: DOCUSATE SODIUM 100MG CAPSULE PO SCH ×2 (08:53→17:00)
[2019-04-25] MEDS: FAMOTIDINE 20MG TABLET PO SCH (08:54)
[2019-04-25] MEDS: FUROSEMIDE 40MG TABLET PO SCH (08:54)
[2019-04-25] MEDS: FOLIC ACID/VITAMIN B COMP W-C TABLET PO SCH (08:57)
[2019-04-25] MEDS: BUDESONIDE 0.5MG/2ML NEB HHN SCH ×2 (10:23→21:15)
[2019-04-25 12:00] VITALS: BP 110/69
[2019-04-25 16:00] VITALS: BP 99/51
[2019-04-25 20:00] VITALS: BP 96/56
[2019-04-25] MEDS: TEMAZEPAM 15MG CAPSULE PO PRN (22:52)
[2019-04-26] VITALS: BP 96/56
[2019-04-26] MEDS: IPRATROPIUM/ALBUTEROL 0.5-3(2.5)MG/3ML NEB HHN SCH ×4 (01:39→21:48)
[2019-04-26 04:00] VITALS: BP 97/52
[2019-04-26 06:28] LABS: HEMATOCRIT 31.9 % (36.0-48.0); HEMOGLOBIN 10.5 g/dL (12.0-16.0); MEAN CORPUSCULAR HEMOGLOBIN 33.5 pg (28.0-32.0); PLATELET 178 x1000/uL (130-400); RED BLOOD CELL COUNT 3.12 mill/uL (4.2-5.4)
[2019-04-26 07:54] VITALS: BP 95/59
[2019-04-26] MEDS: FAMOTIDINE 20MG TABLET PO SCH (08:13)
[2019-04-26] MEDS: FOLIC ACID/VITAMIN B COMP W-C TABLET PO SCH (08:14)
[2019-04-26] MEDS: SEVELAMER CARBONATE 800 MG TABLET PO SCH (08:14)
[2019-04-26] MEDS: FUROSEMIDE 40MG TABLET PO SCH (08:14)
[2019-04-26] MEDS: DOCUSATE SODIUM 100MG CAPSULE PO SCH ×2 (08:15→16:10)
[2019-04-26] MEDS: CARVEDILOL 3.125 MG TABLET PO SCH ×2 (08:15→20:35)
[2019-04-26 12:00] VITALS: BP 132/71
[2019-04-26] MEDS: DEXT 5%/0.45% NACL 1000ML 1,000 ML IV SCH (12:16)
[2019-04-26] MEDS ORDERED: METOCLOPRAMIDE HCL 10MG/2ML VIAL IV PRN (12:30)
[2019-04-26] MEDS: BUDESONIDE 0.5MG/2ML NEB HHN SCH ×2 (15:14→21:48)
[2019-04-26 16:00] VITALS: BP 94/54
[2019-04-26 20:00] VITALS: BP 92/51
[2019-04-27] VITALS: BP 111/60
[2019-04-27] MEDS: IPRATROPIUM/ALBUTEROL 0.5-3(2.5)MG/3ML NEB HHN SCH ×4 (03:30→20:51)
[2019-04-27 04:00] VITALS: BP 101/58
[2019-04-27 06:47] LABS: HEMATOCRIT 33.7 % (36.0-48.0); MEAN CORPUSCULAR HEMOGLOBIN 33.4 pg (28.0-32.0); MEAN CORPUSCULAR VOLUME 102.1 fL (81.0-99.0); PLATELET 183 x1000/uL (130-400); RED CELL DISTRIBUTION WIDTH 16.5 % (11.6-14.6)
[2019-04-27] MEDS: DEXT 5%/0.45% NACL 1000ML 1,000 ML IV SCH ×2 (07:00→10:17)
[2019-04-27] MEDS: BUDESONIDE 0.5MG/2ML NEB HHN SCH (07:52)
[2019-04-27 08:00] VITALS: BP 94/47
[2019-04-27] MEDS: FAMOTIDINE 20MG TABLET PO SCH (08:12)
[2019-04-27] MEDS: FOLIC ACID/VITAMIN B COMP W-C TABLET PO SCH (08:13)
[2019-04-27] MEDS: FUROSEMIDE 40MG TABLET PO SCH (08:13)
[2019-04-27] MEDS: SEVELAMER CARBONATE 800 MG TABLET PO SCH (08:13)
[2019-04-27] MEDS: DOCUSATE SODIUM 100MG CAPSULE PO SCH ×2 (08:14→17:00)
[2019-04-27] MEDS: CARVEDILOL 3.125 MG TABLET PO SCH ×2 (08:14→20:56)
[2019-04-27 12:00] VITALS: BP 112/70
[2019-04-27] MEDS ORDERED: BISACODYL 10MG SUPP PR NR (15:15)
[2019-04-27 16:00] VITALS: BP 92/54
[2019-04-27 20:00] VITALS: BP 95/54
[2019-04-28] VITALS: BP 92/55
[2019-04-28] MEDS: IPRATROPIUM/ALBUTEROL 0.5-3(2.5)MG/3ML NEB HHN SCH ×4 (02:04→22:28)
[2019-04-28] MEDS: DEXT 5%/0.45% NACL 1000ML 1,000 ML IV SCH (03:00)
[2019-04-28 04:19] VITALS: BP 95/50
[2019-04-28 07:59] LABS: BASOPHILS % 1.4 % (0.0-2.0); EOSINOPHILS % 5.6 % (0.0-5.0); HEMATOCRIT. 31.7 % (36.0-48.0); HEMOGLOBIN. 10.6 g/dL (12.0-16.0); LYMPHOCYTES % 14.4 % (20.0-50.0); MEAN CORPUSCULAR HEMOGLOBIN 33.5 pg (28.0-32.0); MEAN CORPUSCULAR VOLUME 100.3 fL (81.0-99.0); MEAN PLATELET VOLUME 8.6 fl (7.4-10.4); MONOCYTES % 9.5 % (2.0-8.0); NEUTROPHILS % 69.1 % (40.0-76.0); PLATELET 188 x1000/uL (130-400); RED BLOOD CELL COUNT 3.16 mill/uL (4.2-5.4); RED CELL DISTRIBUTION WIDTH 16.3 % (11.6-14.6)
[2019-04-28 08:00] VITALS: BP 99/60
[2019-04-28] MEDS: CARVEDILOL 3.125 MG TABLET PO SCH ×2 (09:00→21:00)
[2019-04-28] MEDS: FUROSEMIDE 40MG TABLET PO SCH (09:00)
[2019-04-28] MEDS: DOCUSATE SODIUM 100MG CAPSULE PO SCH ×2 (09:32→16:15)
[2019-04-28] MEDS: FAMOTIDINE 20MG TABLET PO SCH (09:32)
[2019-04-28] MEDS: SEVELAMER CARBONATE 800 MG TABLET PO SCH (09:32)
[2019-04-28] MEDS: FOLIC ACID/VITAMIN B COMP W-C TABLET PO SCH (09:32)
[2019-04-28 12:00] VITALS: BP 95/55
[2019-04-28 16:00] VITALS: BP 118/47
[2019-04-28 20:00] VITALS: BP 101/56
[2019-04-28] MEDS: TEMAZEPAM 15MG CAPSULE PO PRN (22:54)
[2019-04-29] VITALS (7 sets, daily range): BP systolic 94–107; BP diastolic 47–60
[2019-04-29] MEDS: IPRATROPIUM/ALBUTEROL 0.5-3(2.5)MG/3ML NEB HHN SCH ×4 (01:47→20:17)
[2019-04-29 06:50] LABS: EOSINOPHILS % 4.6 % (0.0-5.0); HEMATOCRIT. 32.7 % (36.0-48.0); HEMOGLOBIN. 10.8 g/dL (12.0-16.0); MEAN CORPUSCULAR HEMOGLOBIN 33.7 pg (28.0-32.0); MEAN CORPUSCULAR VOLUME 101.4 fL (81.0-99.0); MEAN PLATELET VOLUME 8.7 fl (7.4-10.4); MONOCYTES % 9.3 % (2.0-8.0); NEUTROPHILS % 72.1 % (40.0-76.0); PLATELET 195 x1000/uL (130-400); RED BLOOD CELL COUNT 3.22 mill/uL (4.2-5.4); RED CELL DISTRIBUTION WIDTH 16.6 % (11.6-14.6)
[2019-04-29 06:55] LABS: INR 1.2; PARTIAL THROMBOPLASTIN TIME 26.1 sec (23.4-31.0)
[2019-04-29] MEDS: FAMOTIDINE 20MG TABLET PO SCH (08:58)
[2019-04-29] MEDS: DOCUSATE SODIUM 100MG CAPSULE PO SCH ×2 (08:58→18:55)
[2019-04-29] MEDS: FUROSEMIDE 40MG TABLET PO SCH (08:58)
[2019-04-29] MEDS: FOLIC ACID/VITAMIN B COMP W-C TABLET PO SCH (08:58)
[2019-04-29] MEDS: SEVELAMER CARBONATE 800 MG TABLET PO SCH (08:58)
[2019-04-29] MEDS: CARVEDILOL 3.125 MG TABLET PO SCH ×2 (08:59→21:00)
[2019-04-30] MEDS ORDERED: DEXT 5%/0.45% NACL 1000ML 1,000 ML IV SCH
[2019-04-30 00:01] VITALS: BP 108/61
[2019-04-30] MEDS: IPRATROPIUM/ALBUTEROL 0.5-3(2.5)MG/3ML NEB HHN SCH (01:05)
[2019-04-30 04:00] VITALS: BP 102/60
[2019-04-30 06:35] LABS: BASOPHILS % 1.1 % (0.0-2.0); EOSINOPHILS % 4.2 % (0.0-5.0); HEMATOCRIT. 30.7 % (36.0-48.0); HEMOGLOBIN. 10.2 g/dL (12.0-16.0); MEAN CORPUSCULAR HEMOGLOBIN 33.9 pg (28.0-32.0); MEAN CORPUSCULAR VOLUME 101.9 fL (81.0-99.0); MEAN PLATELET VOLUME 8.6 fl (7.4-10.4); MONOCYTES % 9.8 % (2.0-8.0); NEUTROPHILS % 71.9 % (40.0-76.0); PLATELET 181 x1000/uL (130-400); RED BLOOD CELL COUNT 3.01 mill/uL (4.2-5.4); RED CELL DISTRIBUTION WIDTH 16.8 % (11.6-14.6)
[2019-04-30 08:00] VITALS: BP 103/62
[2019-04-30] MEDS: CARVEDILOL 3.125 MG TABLET PO SCH (09:00)
[2019-04-30] MEDS: SEVELAMER CARBONATE 800 MG TABLET PO SCH (09:00)
[2019-04-30] MEDS ORDERED: LIDOCAINE HCL 1% 20ML VIAL (Pyxis) INJ ONE (10:08)
[2019-04-30] MEDS ORDERED: SODIUM BICARBONATE 4% (2.4MEQ) 5ML VIAL IV ONE (10:08)
[2019-04-30 12:00] VITALS: BP 108/64
[2019-04-30] MEDS: DOCUSATE SODIUM 100MG CAPSULE PO SCH (13:46)
[2019-04-30] MEDS: FOLIC ACID/VITAMIN B COMP W-C TABLET PO SCH (13:46)
[2019-04-30] MEDS: FAMOTIDINE 20MG TABLET PO SCH (13:46)
[2019-04-30] MEDS: FUROSEMIDE 40MG TABLET PO SCH (13:47)
[2019-04-30 16:00] VITALS: BP 115/69
[2019-04-30 20:08] VITALS: BP 100/61
== END 2019-04-30 20:50 | disposition home or self-care (01) | DRG 190 ==
LOC: ER 19:00 → EDBEDREQTM 21:57 → EDBEDREQ 21:57 → ENRESERV 23:34 → 8WST 04-24 00:21 → CANBEDREQ 04-24 09:14
PROVIDERS: ADMIT Internal Medicine; ATTEND Internal Medicine
PROC: 5A1D70Z Performance of Urinary Filtration, Intermittent, Less than 6 Hours Per Day (ICD-10-PCS; principal; 2019-04-24)
PROC: 5A1D70Z Performance of Urinary Filtration, Intermittent, Less than 6 Hours Per Day (ICD-10-PCS; 2019-04-25)
PROC: 5A1D70Z Performance of Urinary Filtration, Intermittent, Less than 6 Hours Per Day (ICD-10-PCS; 2019-04-28)
PROC: 5A1D70Z Performance of Urinary Filtration, Intermittent, Less than 6 Hours Per Day (ICD-10-PCS; 2019-04-29)
PROC: 5A1D70Z Performance of Urinary Filtration, Intermittent, Less than 6 Hours Per Day (ICD-10-PCS; 2019-04-30)
PROC: 0W9G3ZZ Drainage of Peritoneal Cavity, Percutaneous Approach (ICD-10-PCS; 2019-04-30)
DX: J44.1 Chronic obstructive pulmonary disease with (acute) exacerbation (principal); J96.01 Acute respiratory failure with hypoxia; N18.6 End stage renal disease; I13.2 Hypertensive heart and chronic kidney disease with heart failure and with stage 5 chronic kidney disease, or end stage renal disease; E87.3 Alkalosis; R18.8 Other ascites; I42.0 Dilated cardiomyopathy; D64.9 Anemia, unspecified; E78.5 Hyperlipidemia, unspecified; I73.9 Peripheral vascular disease, unspecified; I08.0 Rheumatic disorders of both mitral and aortic valves; I25.10 Atherosclerotic heart disease of native coronary artery without angina pectoris; I25.5 Ischemic cardiomyopathy; I27.20 Pulmonary hypertension, unspecified; K59.00 Constipation, unspecified; E87.5 Hyperkalemia; I50.82 Biventricular heart failure; Z96.649 Presence of unspecified artificial hip joint; Z96.659 Presence of unspecified artificial knee joint; Z95.810 Presence of automatic (implantable) cardiac defibrillator; I25.2 Old myocardial infarction; Z99.2 Dependence on renal dialysis; Z87.891 Personal history of nicotine dependence; Z95.5 Presence of coronary angioplasty implant and graft; Z79.01 Long term (current) use of anticoagulants; Z79.02 Long term (current) use of antithrombotics/antiplatelets; Z79.899 Other long term (current) drug therapy; Z88.1 Allergy status to other antibiotic agents; Z88.8 Allergy status to other drugs, medicaments and biological substances
CPT/HCPCS: 36415; 36600; 49083; 71045; 74018; 76705; 80048; 82375; 82805; 83880; 84484; 85027; 88108; 93005; 93306; 94640; 94644; 99291; A6261; C1893; J1644; J1940; J2405; J2930; J3490; J7611; J7620; J7626

== ENCOUNTER 2019-05-18 19:38 | Inpatient (IN) | payer BC ==
[~2019-05-18] VITALS: Ht 170.2 cm; Wt 66.2 kg
[2019-05-18] MEDS ORDERED: ALBUTEROL (0.083%) 2.5MG/3ML NEB HHN STA (20:14)
[2019-05-18] MEDS ORDERED: METHYLPREDNISOLONE SOD SUCC 125 MG/2 ML VIAL IV STA (20:14)
[2019-05-18] MEDS ORDERED: IPRATROPIUM BROMIDE (0.02%) 0.5MG/2.5ML NEB HHN STA (20:14)
[2019-05-18] MEDS ORDERED: CEFTRIAXONE 1 G PREMIX 50 ML IV ONE (20:30)
[2019-05-18] MEDS ORDERED: AZITHROMYCIN 500 MG in DEXT 5% WATER 250 ML IV ONE (20:30)
[2019-05-18 21:52] LABS: BASOPHILS % 1.2 % (0.0-2.0); EOSINOPHILS % 3.9 % (0.0-5.0); HEMATOCRIT. 33.1 % (36.0-48.0); HEMOGLOBIN. 10.8 g/dL (12.0-16.0); LYMPHOCYTES % 21.8 % (20.0-50.0); MEAN CORPUSCULAR HEMOGLOBIN 32.9 pg (28.0-32.0); MEAN CORPUSCULAR VOLUME 100.9 fL (81.0-99.0); MEAN PLATELET VOLUME 9.2 fl (7.4-10.4); MONOCYTES % 9.9 % (2.0-8.0); NEUTROPHILS % 63.2 % (40.0-76.0); PLATELET 231 x1000/uL (130-400); RED BLOOD CELL COUNT 3.28 mill/uL (4.2-5.4); RED CELL DISTRIBUTION WIDTH 16.5 % (11.6-14.6)
[2019-05-18 21:55] LABS: INR 1.1; PROTHROMBIN TIME 11.5 sec (9.6-11.0)
[2019-05-18 21:56] LABS: CHLORIDE 104 mEq/L (98-107)
[2019-05-18] MEDS ORDERED: LORAZEPAM 2MG/ML CPJ IV ONE (22:45)
[2019-05-19] VITALS (8 sets, daily range): BP systolic 92–128; BP diastolic 50–74
[2019-05-19] MEDS ORDERED: LORAZEPAM 0.5MG TABLET PO PRN (12:45)
[2019-05-19] MEDS ORDERED: NA PHOS,M-B/NA PHOS,DI-BA ENEMA 118ML PR PRN (12:45)
[2019-05-19] MEDS ORDERED: ACETAMINOPHEN 650MG SUPP PR PRN (12:45)
[2019-05-19] MEDS ORDERED: DIPHENHYDRAMINE 50MG/ML VIAL IV PRN (12:45)
[2019-05-19] MEDS ORDERED: DOCUSATE SODIUM 100MG CAPSULE PO PRN (12:45)
[2019-05-19] MEDS ORDERED: MAGNESIUM/ALUMINUM HYDROXIDE/SIMETHICONE 30ML UDC PO PRN (12:45)
[2019-05-19] MEDS ORDERED: IPRATROPIUM/ALBUTEROL 0.5-3(2.5)MG/3ML NEB NEB PRN (12:45)
[2019-05-19] MEDS ORDERED: CLONIDINE 0.1MG TABLET PO PRN (12:45)
[2019-05-19] MEDS ORDERED: PIPERACILLIN/TAZOBACTAM 2.25 G in DEXTROSE 5% WATER 50 ML IV SCH (14:00)
[2019-05-19] MEDS: IPRATROPIUM/ALBUTEROL 0.5-3(2.5)MG/3ML NEB NEB SCH ×2 (14:40→21:30)
[2019-05-19] MEDS: PIPERACILLIN/TAZOBACTAM 2.25 G in DEXTROSE 5% WATER 50 ML IV SCH (18:27)
[2019-05-19 18:33] LABS: BG CARBOXYHEMOGLOBIN 0.1 % (0.5-1.5); BG FRACTION INSPIRED OXYGEN 21; BG HCO3 ACT 22.3 mmol/L (22.0-26.0); BG METHEMOGLOBIN 0.2 % (0.0-1.5); BG OXYHEMOGLOBIN 96.7 % (94.0-97.0); BG PCO2 32.6 mmHg (35.0-45.0); BG PH 7.453 (7.350-7.450); BG PO2 92.6 mmHg (75.0-100.0); BG SAMPLE SITE LEFT RADIAL; BG TOTAL HEMOGLOBIN 12.1 g/dL (12.0-18.0); BG VENT MODE ROOM AIR
[2019-05-20] MEDS: PIPERACILLIN/TAZOBACTAM 2.25 G in DEXTROSE 5% WATER 50 ML IV SCH ×3 (01:40→17:47)
[2019-05-20] MEDS: IPRATROPIUM/ALBUTEROL 0.5-3(2.5)MG/3ML NEB NEB SCH ×3 (02:30→20:54)
[2019-05-20] MEDS: ONDANSETRON HCL 4MG/2ML INJ IV PRN (02:44)
[2019-05-20 03:39] VITALS: BP 92/55
[2019-05-20] MEDS: GUAIFENESIN 200MG/10ML SUGAR FREE UDC PO PRN (09:13)
[2019-05-20 11:41] LABS: BASOPHILS % 0.5 % (0.0-2.0); EOSINOPHILS % 0.1 % (0.0-5.0); HEMATOCRIT. 33.2 % (36.0-48.0); HEMOGLOBIN. 10.9 g/dL (12.0-16.0); LYMPHOCYTES % 8.8 % (20.0-50.0); MEAN CORPUSCULAR HEMOGLOBIN 33.3 pg (28.0-32.0); MEAN CORPUSCULAR VOLUME 101.4 fL (81.0-99.0); MEAN PLATELET VOLUME 8.7 fl (7.4-10.4); MONOCYTES % 6.9 % (2.0-8.0); NEUTROPHILS % 83.7 % (40.0-76.0); PLATELET 212 x1000/uL (130-400); RED BLOOD CELL COUNT 3.28 mill/uL (4.2-5.4); RED CELL DISTRIBUTION WIDTH 16.7 % (11.6-14.6)
[2019-05-20 13:24] LABS: CHLORIDE 105 mEq/L (98-107)
[2019-05-20 13:33] LABS: PHOSPHORUS 5.5 mg/dL (2.5-4.9)
[2019-05-20 13:34] LABS: LDL CHOLESTEROL 70 mg/dL (5-100)
[2019-05-20 13:35] LABS: HDL CHOLESTEROL 42 mg/dL (40-59)
[2019-05-20] MEDS: HYDROCODONE/ACETAMINOPHEN 5/325MG TABLET PO PRN (15:35)
[2019-05-20] MEDS: METHYLPREDNISOLONE SOD SUCC 40 MG/ML VIAL IV SCH (17:47)
[2019-05-20 20:00] VITALS: BP 97/56
[2019-05-20] MEDS: BUDESONIDE 0.5MG/2ML NEB HHN SCH (20:55)
[2019-05-20] MEDS: GUAIFENESIN 600MG ER TABLET PO SCH (21:25)
[2019-05-21] VITALS: BP 92/47
[2019-05-21] MEDS: IPRATROPIUM/ALBUTEROL 0.5-3(2.5)MG/3ML NEB NEB SCH ×3 (01:07→12:48)
[2019-05-21] MEDS: PIPERACILLIN/TAZOBACTAM 2.25 G in DEXTROSE 5% WATER 50 ML IV SCH ×3 (01:33→17:53)
[2019-05-21 04:00] VITALS: BP 104/64
[2019-05-21] MEDS: METHYLPREDNISOLONE SOD SUCC 40 MG/ML VIAL IV SCH ×2 (04:03→15:29)
[2019-05-21 07:55] LABS: HEMATOCRIT 33.6 % (36.0-48.0); HEMOGLOBIN 10.9 g/dL (12.0-16.0); MEAN CORPUSCULAR HEMOGLOBIN 33.3 pg (28.0-32.0); MEAN CORPUSCULAR VOLUME 102.2 fL (81.0-99.0); PLATELET 196 x1000/uL (130-400); RED BLOOD CELL COUNT 3.28 mill/uL (4.2-5.4); RED CELL DISTRIBUTION WIDTH 16.5 % (11.6-14.6)
[2019-05-21 08:00] VITALS: BP 117/69
[2019-05-21 08:00] LABS: INR 1.1; PROTHROMBIN TIME 11.7 sec (9.6-11.0)
[2019-05-21] MEDS ORDERED: LIDOCAINE HCL 1% 20ML VIAL (Pyxis) INJ ONE (08:21)
[2019-05-21] MEDS ORDERED: SODIUM BICARBONATE 4% (2.4MEQ) 5ML VIAL IV ONE (08:21)
[2019-05-21] MEDS: BUDESONIDE 0.5MG/2ML NEB HHN SCH ×2 (09:00→12:48)
[2019-05-21] MEDS: GUAIFENESIN 600MG ER TABLET PO SCH ×2 (10:05→21:17)
[2019-05-21 12:00] VITALS: BP 111/58
[2019-05-21] MEDS ORDERED: ALBUMIN HUMAN 25GM/500ML (5%) IV PRN (12:15)
[2019-05-21 16:00] VITALS: BP 121/68
[2019-05-21 20:00] VITALS: BP 91/58
[2019-05-21] MEDS: ALPRAZOLAM 0.25 MG TABLET PO PRN (22:31)
[2019-05-22] VITALS: BP 93/41
[2019-05-22] MEDS: PIPERACILLIN/TAZOBACTAM 2.25 G in DEXTROSE 5% WATER 50 ML IV SCH ×3 (01:43→18:42)
[2019-05-22] MEDS: IPRATROPIUM/ALBUTEROL 0.5-3(2.5)MG/3ML NEB NEB SCH ×4 (01:58→19:59)
[2019-05-22 04:00] VITALS: BP 115/63
[2019-05-22] MEDS: METHYLPREDNISOLONE SOD SUCC 40 MG/ML VIAL IV SCH ×2 (04:06→16:05)
[2019-05-22 05:30] LABS: HEMATOCRIT. 30.8 % (36.0-48.0); HEMOGLOBIN. 10.4 g/dL (12.0-16.0); MEAN CORPUSCULAR HEMOGLOBIN 33.9 pg (28.0-32.0); MEAN CORPUSCULAR VOLUME 100.2 fL (81.0-99.0); MEAN PLATELET VOLUME 8.4 fl (7.4-10.4); PLATELET 193 x1000/uL (130-400); RED BLOOD CELL COUNT 3.08 mill/uL (4.2-5.4); RED CELL DISTRIBUTION WIDTH 16.1 % (11.6-14.6)
[2019-05-22 08:00] VITALS: BP 109/61
[2019-05-22] MEDS: BUDESONIDE 0.5MG/2ML NEB HHN SCH ×2 (08:26→19:59)
[2019-05-22] MEDS: HYDROCODONE/ACETAMINOPHEN 5/325MG TABLET PO PRN ×2 (09:15→14:01)
[2019-05-22] MEDS: GUAIFENESIN 600MG ER TABLET PO SCH ×2 (09:17→21:41)
[2019-05-22 12:00] VITALS: BP 104/64
[2019-05-22 13:42] VITALS: BP 111/57
[2019-05-22] MEDS: ASPIRIN 81MG EC TABLET PO SCH (16:05)
[2019-05-22] MEDS: GUAIFENESIN 200MG/10ML SUGAR FREE UDC PO PRN (16:20)
[2019-05-22 16:46] LABS: PLATELET ESTIMATE NORMAL
[2019-05-22 16:50] LABS: BG BASE EXCESS 2.7 mmol/L (-2.0-2.0); BG CARBOXYHEMOGLOBIN 0.3 % (0.5-1.5); BG DEOXYHEMOGLOBIN 2.6 % (0.0-5.0); BG FRACTION INSPIRED OXYGEN 21; BG METHEMOGLOBIN 0.3 % (0.0-1.5); BG OXYGEN SATURATION 97.4 % (92.0-98.5); BG OXYHEMOGLOBIN 96.8 % (94.0-97.0); BG PCO2 35.1 mmHg (35.0-45.0); BG PH 7.487 (7.350-7.450); BG PO2 96.3 mmHg (75.0-100.0); BG SAMPLE SITE LEFT BRACHIAL; BG TOTAL HEMOGLOBIN 11.2 g/dL (12.0-18.0); BG VENT MODE ROOM AIR
[2019-05-22 20:00] VITALS: BP 93/38
[2019-05-23] VITALS: BP 90/46
[2019-05-23] MEDS: IPRATROPIUM/ALBUTEROL 0.5-3(2.5)MG/3ML NEB NEB SCH ×4 (01:27→21:40)
[2019-05-23] MEDS: PIPERACILLIN/TAZOBACTAM 2.25 G in DEXTROSE 5% WATER 50 ML IV SCH ×3 (02:37→17:58)
[2019-05-23 04:00] VITALS: BP 101/52
[2019-05-23] MEDS: METHYLPREDNISOLONE SOD SUCC 40 MG/ML VIAL IV SCH ×2 (05:29→15:38)
[2019-05-23 07:29] LABS: MEAN CORPUSCULAR HEMOGLOBIN 33.4 pg (28.0-32.0); MEAN CORPUSCULAR VOLUME 99.7 fL (81.0-99.0); MEAN PLATELET VOLUME 8.9 fl (7.4-10.4); PLATELET 178 x1000/uL (130-400); RED BLOOD CELL COUNT 3.01 mill/uL (4.2-5.4); RED CELL DISTRIBUTION WIDTH 16.2 % (11.6-14.6)
[2019-05-23] MEDS: BUDESONIDE 0.5MG/2ML NEB HHN SCH ×2 (07:46→21:40)
[2019-05-23 08:00] VITALS: BP 104/57
[2019-05-23] MEDS ORDERED: LACTULOSE 20G/30ML UDC PO SCH (08:45)
[2019-05-23] MEDS: CLOPIDOGREL 75MG TABLET PO SCH (09:31)
[2019-05-23] MEDS: HYDROCODONE/ACETAMINOPHEN 5/325MG TABLET PO PRN (09:31)
[2019-05-23] MEDS: GUAIFENESIN 600MG ER TABLET PO SCH ×2 (09:31→21:27)
[2019-05-23] MEDS: ASPIRIN 81MG EC TABLET PO SCH (09:32)
[2019-05-23 10:02] LABS: PLATELET ESTIMATE NORMAL
[2019-05-23 12:16] VITALS: BP 100/52
[2019-05-23] MEDS: ACETAMINOPHEN 325MG TABLET PO PRN (15:43)
[2019-05-23 16:07] VITALS: BP 91/40
[2019-05-23 20:00] VITALS: BP 100/51
[2019-05-23] MEDS: ATORVASTATIN CALCIUM 40MG TABLET PO SCH (21:27)
[2019-05-24] VITALS: BP 99/55
[2019-05-24] MEDS: IPRATROPIUM/ALBUTEROL 0.5-3(2.5)MG/3ML NEB NEB SCH ×5 (01:45→21:37)
[2019-05-24 04:00] VITALS: BP 99/57
[2019-05-24] MEDS: METHYLPREDNISOLONE SOD SUCC 40 MG/ML VIAL IV SCH ×2 (05:48→16:43)
[2019-05-24] MEDS: PIPERACILLIN/TAZOBACTAM 2.25 G in DEXTROSE 5% WATER 50 ML IV SCH ×3 (05:48→19:40)
[2019-05-24 07:31] LABS: HEMATOCRIT. 32.4 % (36.0-48.0); HEMOGLOBIN. 10.7 g/dL (12.0-16.0); MEAN CORPUSCULAR HEMOGLOBIN 33.6 pg (28.0-32.0); MEAN CORPUSCULAR VOLUME 102.2 fL (81.0-99.0); MEAN PLATELET VOLUME 8.5 fl (7.4-10.4); PLATELET 192 x1000/uL (130-400); RED BLOOD CELL COUNT 3.17 mill/uL (4.2-5.4)
[2019-05-24 08:00] VITALS: BP 104/63
[2019-05-24] MEDS: GUAIFENESIN 600MG ER TABLET PO SCH ×2 (08:43→20:54)
[2019-05-24] MEDS: CLOPIDOGREL 75MG TABLET PO SCH (08:43)
[2019-05-24] MEDS: ASPIRIN 81MG EC TABLET PO SCH (08:43)
[2019-05-24 12:00] VITALS: BP 91/51
[2019-05-24] MEDS ORDERED: MAGNESIUM CITRATE 300ML SOLUTION PO NR (12:30)
[2019-05-24 16:00] VITALS: BP 101/55
[2019-05-24] MEDS: DOCUSATE SODIUM 100MG CAPSULE PO SCH (16:43)
[2019-05-24 20:00] VITALS: BP 96/55
[2019-05-24] MEDS: ATORVASTATIN CALCIUM 40MG TABLET PO SCH (20:54)
[2019-05-24 21:46] LABS: PLATELET ESTIMATE NORMAL
[2019-05-24] MEDS: ALPRAZOLAM 0.25 MG TABLET PO PRN (23:03)
[2019-05-25] VITALS: BP 102/56
[2019-05-25] MEDS: IPRATROPIUM/ALBUTEROL 0.5-3(2.5)MG/3ML NEB NEB SCH ×4 (01:45→22:08)
[2019-05-25] MEDS: PIPERACILLIN/TAZOBACTAM 2.25 G in DEXTROSE 5% WATER 50 ML IV SCH ×3 (02:44→17:48)
[2019-05-25 04:00] VITALS: BP 104/54
[2019-05-25] MEDS: METHYLPREDNISOLONE SOD SUCC 40 MG/ML VIAL IV SCH ×2 (04:05→16:47)
[2019-05-25 08:00] VITALS: BP 101/57
[2019-05-25] MEDS: ASPIRIN 81MG EC TABLET PO SCH (08:36)
[2019-05-25] MEDS: CLOPIDOGREL 75MG TABLET PO SCH (08:36)
[2019-05-25] MEDS: GUAIFENESIN 600MG ER TABLET PO SCH ×2 (08:36→21:38)
[2019-05-25 08:37] LABS: HEMATOCRIT. 31.8 % (36.0-48.0); HEMOGLOBIN. 10.5 g/dL (12.0-16.0); MEAN CORPUSCULAR HEMOGLOBIN 33.1 pg (28.0-32.0); MEAN CORPUSCULAR VOLUME 100.6 fL (81.0-99.0); MEAN PLATELET VOLUME 8.6 fl (7.4-10.4); PLATELET 199 x1000/uL (130-400); RED BLOOD CELL COUNT 3.16 mill/uL (4.2-5.4); RED CELL DISTRIBUTION WIDTH 16.2 % (11.6-14.6)
[2019-05-25] MEDS: DOCUSATE SODIUM 100MG CAPSULE PO SCH ×2 (08:37→16:47)
[2019-05-25 11:40] LABS: PLATELET ESTIMATE NORMAL
[2019-05-25 12:00] VITALS: BP 107/52
[2019-05-25 16:00] VITALS: BP 100/56
[2019-05-25 20:00] VITALS: BP 110/63
[2019-05-25] MEDS: ATORVASTATIN CALCIUM 40MG TABLET PO SCH (21:38)
[2019-05-26] VITALS: BP 106/56
[2019-05-26] MEDS: PIPERACILLIN/TAZOBACTAM 2.25 G in DEXTROSE 5% WATER 50 ML IV SCH ×3 (01:03→18:35)
[2019-05-26] MEDS: ALPRAZOLAM 0.25 MG TABLET PO PRN ×2 (01:03→21:22)
[2019-05-26] MEDS: IPRATROPIUM/ALBUTEROL 0.5-3(2.5)MG/3ML NEB NEB SCH ×4 (03:00→21:35)
[2019-05-26 04:00] VITALS: BP 114/67
[2019-05-26] MEDS: METHYLPREDNISOLONE SOD SUCC 40 MG/ML VIAL IV SCH ×2 (04:17→15:00)
[2019-05-26 06:18] LABS: HEMATOCRIT. 31.3 % (36.0-48.0); HEMOGLOBIN. 10.6 g/dL (12.0-16.0); MEAN CORPUSCULAR HEMOGLOBIN 33.6 pg (28.0-32.0); MEAN CORPUSCULAR VOLUME 99.3 fL (81.0-99.0); MEAN PLATELET VOLUME 8.7 fl (7.4-10.4); PLATELET 216 x1000/uL (130-400); RED BLOOD CELL COUNT 3.16 mill/uL (4.2-5.4)
[2019-05-26 08:00] VITALS: BP 109/65
[2019-05-26] MEDS: CLOPIDOGREL 75MG TABLET PO SCH (09:34)
[2019-05-26] MEDS: ACETAMINOPHEN 325MG TABLET PO PRN (09:35)
[2019-05-26] MEDS: DOCUSATE SODIUM 100MG CAPSULE PO SCH ×2 (09:35→18:35)
[2019-05-26] MEDS: GUAIFENESIN 600MG ER TABLET PO SCH ×2 (09:39→21:22)
[2019-05-26 12:00] VITALS: BP 103/55
[2019-05-26] MEDS: ASPIRIN 81MG EC TABLET PO SCH (14:59)
[2019-05-26 16:00] VITALS: BP 104/56
[2019-05-26 17:11] LABS: PLATELET ESTIMATE NORMAL
[2019-05-26] MEDS: ATORVASTATIN CALCIUM 40MG TABLET PO SCH (21:22)
[2019-05-27] VITALS: BP 115/55
[2019-05-27] MEDS: IPRATROPIUM/ALBUTEROL 0.5-3(2.5)MG/3ML NEB NEB SCH ×4 (01:35→20:42)
[2019-05-27] MEDS: METHYLPREDNISOLONE SOD SUCC 40 MG/ML VIAL IV SCH ×2 (05:17→16:52)
[2019-05-27 08:00] VITALS: BP 105/58
[2019-05-27 08:18] LABS: BASOPHILS % 0.1 % (0.0-2.0); EOSINOPHILS % 0.2 % (0.0-5.0); HEMATOCRIT. 33.2 % (36.0-48.0); LYMPHOCYTES % 7.2 % (20.0-50.0); MEAN CORPUSCULAR HEMOGLOBIN 33.2 pg (28.0-32.0); MEAN CORPUSCULAR VOLUME 100.5 fL (81.0-99.0); MEAN PLATELET VOLUME 8.5 fl (7.4-10.4); MONOCYTES % 8.7 % (2.0-8.0); NEUTROPHILS % 83.8 % (40.0-76.0); PLATELET 210 x1000/uL (130-400); RED CELL DISTRIBUTION WIDTH 16.9 % (11.6-14.6)
[2019-05-27] MEDS: DOCUSATE SODIUM 100MG CAPSULE PO SCH ×2 (09:00→16:52)
[2019-05-27] MEDS: ASPIRIN 81MG EC TABLET PO SCH (09:22)
[2019-05-27] MEDS: CLOPIDOGREL 75MG TABLET PO SCH (09:23)
[2019-05-27] MEDS: GUAIFENESIN 600MG ER TABLET PO SCH ×2 (09:23→20:32)
[2019-05-27 12:00] VITALS: BP 99/53
[2019-05-27 16:00] VITALS: BP 114/69
[2019-05-27 20:00] VITALS: BP 142/99
[2019-05-27] MEDS: ATORVASTATIN CALCIUM 40MG TABLET PO SCH (20:32)
[2019-05-27] MEDS: ALPRAZOLAM 0.25 MG TABLET PO PRN (20:33)
[2019-05-28] VITALS: BP 116/72
[2019-05-28] MEDS: IPRATROPIUM/ALBUTEROL 0.5-3(2.5)MG/3ML NEB NEB SCH (02:08)
[2019-05-28] MEDS: ONDANSETRON HCL 4MG/2ML INJ IV PRN (02:37)
[2019-05-28 04:00] VITALS: BP 129/72
[2019-05-28] MEDS: METHYLPREDNISOLONE SOD SUCC 40 MG/ML VIAL IV SCH (05:08)
[2019-05-28 07:57] LABS: HEMATOCRIT. 35.7 % (36.0-48.0); HEMOGLOBIN. 11.8 g/dL (12.0-16.0); MEAN CORPUSCULAR VOLUME 99.9 fL (81.0-99.0); MEAN PLATELET VOLUME 8.7 fl (7.4-10.4); PLATELET 256 x1000/uL (130-400); RED BLOOD CELL COUNT 3.57 mill/uL (4.2-5.4); RED CELL DISTRIBUTION WIDTH 16.6 % (11.6-14.6)
[2019-05-28 08:00] VITALS: BP 115/68
[2019-05-28] MEDS: GUAIFENESIN 600MG ER TABLET PO SCH (09:49)
[2019-05-28] MEDS: CLOPIDOGREL 75MG TABLET PO SCH (09:49)
[2019-05-28] MEDS: ASPIRIN 81MG EC TABLET PO SCH (09:49)
[2019-05-28] MEDS: DOCUSATE SODIUM 100MG CAPSULE PO SCH (09:51)
[2019-05-28 12:00] VITALS: BP 110/61
[2019-05-28 12:43] LABS: PLATELET ESTIMATE NORMAL
[2019-05-28] MEDS ORDERED: ALPR0.25 MT (13:27)
[2019-05-28] MEDS ORDERED: ONDA4TAB5 MT (13:27)
[2019-05-28] MEDS ORDERED: ONDANSETRON HCL 4MG/2ML INJ IV NR (13:30)
[2019-05-28 16:57] VITALS: BP 104/56
== END 2019-05-28 18:00 | disposition home or self-care (01) | DRG 193 ==
LOC: ER 19:38 → 5EST 22:54 → EDBEDREQTM 22:59 → EDBEDREQ 22:59 → EDBEDREQSVC 22:59 → ENRESERV 05-19 09:14 → 8WST 05-22 13:15
PROVIDERS: ADMIT Internal Medicine; ATTEND Internal Medicine
PROC: 5A09357 Assistance with Respiratory Ventilation, Less than 24 Consecutive Hours, Continuous Positive Airway Pressure (ICD-10-PCS; 2019-05-18)
PROC: 5A1D70Z Performance of Urinary Filtration, Intermittent, Less than 6 Hours Per Day (ICD-10-PCS; 2019-05-18)
PROC: 5A1D70Z Performance of Urinary Filtration, Intermittent, Less than 6 Hours Per Day (ICD-10-PCS; 2019-05-20)
PROC: 0W9G3ZZ Drainage of Peritoneal Cavity, Percutaneous Approach (ICD-10-PCS; principal; 2019-05-21)
PROC: 5A1D70Z Performance of Urinary Filtration, Intermittent, Less than 6 Hours Per Day (ICD-10-PCS; 2019-05-22)
PROC: 5A1D70Z Performance of Urinary Filtration, Intermittent, Less than 6 Hours Per Day (ICD-10-PCS; 2019-05-24)
PROC: 5A1D70Z Performance of Urinary Filtration, Intermittent, Less than 6 Hours Per Day (ICD-10-PCS; 2019-05-26)
PROC: 5A1D70Z Performance of Urinary Filtration, Intermittent, Less than 6 Hours Per Day (ICD-10-PCS; 2019-05-28)
DX: J18.9 Pneumonia, unspecified organism (principal); J96.00 Acute respiratory failure, unspecified whether with hypoxia or hypercapnia; N18.6 End stage renal disease; I13.2 Hypertensive heart and chronic kidney disease with heart failure and with stage 5 chronic kidney disease, or end stage renal disease; J44.1 Chronic obstructive pulmonary disease with (acute) exacerbation; R18.8 Other ascites; E46 Unspecified protein-calorie malnutrition; E87.2 Acidosis; I50.22 Chronic systolic (congestive) heart failure; I27.20 Pulmonary hypertension, unspecified; I25.5 Ischemic cardiomyopathy; F41.9 Anxiety disorder, unspecified; I25.10 Atherosclerotic heart disease of native coronary artery without angina pectoris; E78.5 Hyperlipidemia, unspecified; J06.9 Acute upper respiratory infection, unspecified; R07.81 Pleurodynia; Z96.649 Presence of unspecified artificial hip joint; Z96.659 Presence of unspecified artificial knee joint; K72.90 Hepatic failure, unspecified without coma; D64.9 Anemia, unspecified; J20.9 Acute bronchitis, unspecified; I08.0 Rheumatic disorders of both mitral and aortic valves; I73.9 Peripheral vascular disease, unspecified; K59.00 Constipation, unspecified; R53.82 Chronic fatigue, unspecified; Z82.3 Family history of stroke; Z82.49 Family history of ischemic heart disease and other diseases of the circulatory system; Z99.2 Dependence on renal dialysis; I25.2 Old myocardial infarction; Z87.891 Personal history of nicotine dependence; Z88.8 Allergy status to other drugs, medicaments and biological substances; Z95.5 Presence of coronary angioplasty implant and graft; Z95.810 Presence of automatic (implantable) cardiac defibrillator; Z88.1 Allergy status to other antibiotic agents; Z79.82 Long term (current) use of aspirin; Z79.899 Other long term (current) drug therapy; Z68.22 Body mass index [BMI] 22.0-22.9, adult
CPT/HCPCS: 36415; 36600; 49083; 71045; 71046; 76705; 80048; 80061; 82375; 82805; 83605; 83735; 83880; 83970; 84100; 84484; 85027; 87804; 93005; 94640; 97162; 99291; A6261; J0456; J0696; J1200; J2060; J2405; J2543; J2920; J2930; J3490; J7040; J7060; J7611; J7620; J7626

== ENCOUNTER 2019-06-27 11:28 | Inpatient (IN) | payer BC ==
[~2019-06-27] VITALS: Ht 170.2 cm; Wt 61.2 kg
[2019-06-27] VITALS (7 sets, daily range): BP systolic 90–130; BP diastolic 46–69
[~2019-06-27 11:28] MED LIST changes: +ALPR0.25 MT; -CARV3.1242 PO; -CLOP75TA33 PO; +MIDO10TA MT; -NEPVIT MT; +ONDA4TAB5 MT
[2019-06-27] MEDS ORDERED: METHYLPREDNISOLONE SOD SUCC 125 MG/2 ML VIAL IV STA (12:06)
[2019-06-27] MEDS ORDERED: ALBUTEROL (0.083%) 2.5MG/3ML NEB HHN STA (12:06)
[2019-06-27 12:58] LABS: BASOPHILS % 0.6 % (0.0-2.0); EOSINOPHILS % 0.3 % (0.0-5.0); HEMOGLOBIN. 12.1 g/dL (12.0-16.0); LYMPHOCYTES % 14.2 % (20.0-50.0); MEAN CORPUSCULAR HEMOGLOBIN 33.7 pg (28.0-32.0); MEAN PLATELET VOLUME 9.5 fl (7.4-10.4); MONOCYTES % 5.6 % (2.0-8.0); NEUTROPHILS % 79.3 % (40.0-76.0); PLATELET 220 x1000/uL (130-400); RED BLOOD CELL COUNT 3.59 mill/uL (4.2-5.4); RED CELL DISTRIBUTION WIDTH 19.3 % (11.6-14.6)
[2019-06-27 13:36] LABS: BG BASE EXCESS 1.3 mmol/L (-2.0-2.0); BG BILEVEL POS AIRWAY PRESSURE 15/5; BG CARBOXYHEMOGLOBIN 0.8 % (0.5-1.5); BG DEOXYHEMOGLOBIN 0.3 % (0.0-5.0); BG FRACTION INSPIRED OXYGEN 45; BG HCO3 ACT 19.6 mmol/L (22.0-26.0); BG METHEMOGLOBIN 0.2 % (0.0-1.5); BG OXYGEN SATURATION 99.7 % (92.0-98.5); BG OXYHEMOGLOBIN 98.7 % (94.0-97.0); BG PCO2 17.3 mmHg (35.0-45.0); BG PH 7.673 (7.350-7.450); BG PO2 283.3 mmHg (75.0-100.0); BG SAMPLE SITE RIGHT RADIAL; BG TOTAL HEMOGLOBIN 11.7 g/dL (12.0-18.0); BG VENT MODE MASK - BIPAP; BG VENT RATE 16 set
[2019-06-27 13:47] LABS: CHLORIDE 98 mEq/L (98-107)
[2019-06-27] MEDS ORDERED: LORAZEPAM 1MG TABLET PO ONE (14:00)
[2019-06-27 16:35] LABS: BG BASE EXCESS -0.1 mmol/L (-2.0-2.0); BG CARBOXYHEMOGLOBIN 0.2 % (0.5-1.5); BG DEOXYHEMOGLOBIN 0.9 % (0.0-5.0); BG FRACTION INSPIRED OXYGEN 28; BG HCO3 ACT 21.2 mmol/L (22.0-26.0); BG METHEMOGLOBIN 0.2 % (0.0-1.5); BG OXYGEN SATURATION 99.1 % (92.0-98.5); BG OXYHEMOGLOBIN 98.7 % (94.0-97.0); BG PCO2 25.2 mmHg (35.0-45.0); BG PH 7.542 (7.350-7.450); BG PO2 178.1 mmHg (75.0-100.0); BG SAMPLE SITE LEFT BRACHIAL; BG TOTAL HEMOGLOBIN 11.9 g/dL (12.0-18.0); BG VENT MODE NASAL CANNULA
[2019-06-27] MEDS ORDERED: DOCUSATE SODIUM 100MG CAPSULE PO PRN (16:45)
[2019-06-27] MEDS ORDERED: NA PHOS,M-B/NA PHOS,DI-BA ENEMA 118ML PR PRN (16:45)
[2019-06-27] MEDS ORDERED: ONDANSETRON HCL 4MG/2ML INJ IV PRN (16:45)
[2019-06-27] MEDS ORDERED: GUAIFENESIN 200MG/10ML SUGAR FREE UDC PO PRN (16:45)
[2019-06-27] MEDS ORDERED: LORAZEPAM 0.5MG TABLET PO PRN (16:45)
[2019-06-27] MEDS ORDERED: DIPHENHYDRAMINE 50MG/ML VIAL IV PRN (16:45)
[2019-06-27] MEDS ORDERED: ACETAMINOPHEN 650MG SUPP PR PRN (16:45)
[2019-06-27] MEDS ORDERED: IPRATROPIUM/ALBUTEROL 0.5-3(2.5)MG/3ML NEB NEB PRN (16:45)
[2019-06-27] MEDS: METHYLPREDNISOLONE SOD SUCC 40 MG/ML VIAL IV SCH ×2 (18:00→19:00)
[2019-06-27] MEDS: MIDODRINE HCL 5MG TABLET PO SCH (18:18)
[2019-06-27] MEDS: VANCOMYCIN HCL 1000 MG/20 ML ORAL PO SCH (20:04)
[2019-06-27] MEDS: METRONIDAZOLE 500MG TABLET PO SCH (21:04)
[2019-06-27] MEDS: IPRATROPIUM/ALBUTEROL 0.5-3(2.5)MG/3ML NEB NEB SCH (21:37)
[2019-06-28] VITALS (17 sets, daily range): BP systolic 90–144; BP diastolic 42–106
[2019-06-28] MEDS: VANCOMYCIN HCL 1000 MG/20 ML ORAL PO SCH ×4 (00:13→18:03)
[2019-06-28 00:25] LABS: CREATINE KINASE MB FRACTION 1.3 ng/mL (0.5-3.6)
[2019-06-28] MEDS: IPRATROPIUM/ALBUTEROL 0.5-3(2.5)MG/3ML NEB NEB SCH ×4 (01:24→20:40)
[2019-06-28 08:45] LABS: HEMATOCRIT. 37.8 % (36.0-48.0); HEMOGLOBIN. 11.9 g/dL (12.0-16.0); MEAN CORPUSCULAR HEMOGLOBIN 33.1 pg (28.0-32.0); MEAN CORPUSCULAR VOLUME 105.2 fL (81.0-99.0); MEAN PLATELET VOLUME 9.8 fl (7.4-10.4); PLATELET 213 x1000/uL (130-400); RED CELL DISTRIBUTION WIDTH 19.9 % (11.6-14.6)
[2019-06-28] MEDS: ASPIRIN 81MG EC TABLET PO SCH (09:55)
[2019-06-28] MEDS: MIDODRINE HCL 5MG TABLET PO SCH ×3 (09:56→18:02)
[2019-06-28] MEDS: APIXABAN 2.5 MG TABLET PO SCH ×2 (09:56→18:02)
[2019-06-28] MEDS: METRONIDAZOLE 500MG TABLET PO SCH ×2 (09:57→22:07)
[2019-06-28] MEDS: HYDROCODONE/ACETAMINOPHEN 5/325MG TABLET PO PRN (10:26)
[2019-06-28 12:00] LABS: NUCLEATED RED BLOOD CELLS 3 /100 WBC
[2019-06-28 12:01] LABS: PLATELET ESTIMATE NORMAL
[2019-06-28 12:52] LABS: CHLORIDE 99 mEq/L (98-107)
[2019-06-28 13:01] LABS: LDL CHOLESTEROL 100 mg/dL (5-100)
[2019-06-28 13:02] LABS: CREATINE KINASE 22 IU/L (26-192); HDL CHOLESTEROL 15 mg/dL (40-59)
[2019-06-28 13:05] LABS: CREATINE KINASE MB FRACTION 1.1 ng/mL (0.5-3.6)
[2019-06-28] MEDS: METHYLPREDNISOLONE SOD SUCC 40 MG/ML VIAL IV SCH (18:03)
[2019-06-28] MEDS: ALPRAZOLAM 0.25 MG TABLET PO SCH (20:09)
[2019-06-29] VITALS (11 sets, daily range): BP systolic 85–117; BP diastolic 53–67
[2019-06-29] MEDS: IPRATROPIUM/ALBUTEROL 0.5-3(2.5)MG/3ML NEB NEB SCH ×3 (02:28→20:03)
[2019-06-29] MEDS: METHYLPREDNISOLONE SOD SUCC 40 MG/ML VIAL IV SCH ×2 (05:35→17:29)
[2019-06-29 07:13] LABS: BASOPHILS % 0.3 % (0.0-2.0); HEMATOCRIT. 36.7 % (36.0-48.0); HEMOGLOBIN. 11.8 g/dL (12.0-16.0); LYMPHOCYTES % 8.5 % (20.0-50.0); MEAN CORPUSCULAR HEMOGLOBIN 33.2 pg (28.0-32.0); MEAN CORPUSCULAR VOLUME 103.1 fL (81.0-99.0); MEAN PLATELET VOLUME 9.4 fl (7.4-10.4); MONOCYTES % 3.5 % (2.0-8.0); NEUTROPHILS % 87.7 % (40.0-76.0); PLATELET 235 x1000/uL (130-400); RED BLOOD CELL COUNT 3.56 mill/uL (4.2-5.4); RED CELL DISTRIBUTION WIDTH 19.6 % (11.6-14.6)
[2019-06-29] MEDS: ASPIRIN 81MG EC TABLET PO SCH (09:05)
[2019-06-29] MEDS: ALPRAZOLAM 0.25 MG TABLET PO SCH (09:05)
[2019-06-29] MEDS: MIDODRINE HCL 5MG TABLET PO SCH ×3 (09:06→17:29)
[2019-06-29] MEDS: METRONIDAZOLE 500MG TABLET PO SCH ×2 (09:06→21:39)
[2019-06-29] MEDS: HYDROCODONE/ACETAMINOPHEN 5/325MG TABLET PO PRN ×2 (09:43→21:40)
[2019-06-29] MEDS ORDERED: LIDOCAINE HCL 1% 20ML VIAL (Pyxis) INJ ONE (10:18)
[2019-06-29 13:42] LABS: INR 1.6; PARTIAL THROMBOPLASTIN TIME 32.9 sec (23.4-31.0); PROTHROMBIN TIME 16.1 sec (9.6-11.0)
[2019-06-29] MEDS: SODIUM CHLORIDE 0.9% 1,000 ML IV SCH (21:41)
[2019-06-30] VITALS (10 sets, daily range): BP systolic 92–112; BP diastolic 58–71
[2019-06-30] MEDS: IPRATROPIUM/ALBUTEROL 0.5-3(2.5)MG/3ML NEB NEB SCH ×4 (01:17→20:30)
[2019-06-30] MEDS: METHYLPREDNISOLONE SOD SUCC 40 MG/ML VIAL IV SCH ×2 (04:51→17:51)
[2019-06-30 07:39] LABS: HEMATOCRIT. 36.2 % (36.0-48.0); HEMOGLOBIN. 11.6 g/dL (12.0-16.0); MEAN CORPUSCULAR HEMOGLOBIN 32.9 pg (28.0-32.0); MEAN CORPUSCULAR VOLUME 102.6 fL (81.0-99.0); MEAN PLATELET VOLUME 8.7 fl (7.4-10.4); PLATELET 227 x1000/uL (130-400); RED BLOOD CELL COUNT 3.53 mill/uL (4.2-5.4); RED CELL DISTRIBUTION WIDTH 19.9 % (11.6-14.6)
[2019-06-30] MEDS: MIDODRINE HCL 5MG TABLET PO SCH ×3 (09:18→17:48)
[2019-06-30] MEDS: METRONIDAZOLE 500MG TABLET PO SCH ×2 (09:18→21:44)
[2019-06-30] MEDS: ALPRAZOLAM 0.25 MG TABLET PO SCH (09:18)
[2019-06-30] MEDS: ASPIRIN 81MG EC TABLET PO SCH (09:18)
[2019-06-30 10:02] LABS: NUCLEATED RED BLOOD CELLS 2 /100 WBC; PLATELET ESTIMATE NORMAL
[2019-06-30] MEDS: SODIUM CHLORIDE 0.9% 1,000 ML IV SCH (15:15)
[2019-06-30] MEDS: ACETAMINOPHEN 325MG TABLET PO PRN (20:14)
[2019-06-30] MEDS: HYDROCODONE/ACETAMINOPHEN 5/325MG TABLET PO PRN (22:10)
[2019-07-01] VITALS (32 sets, daily range): BP systolic 66–138; BP diastolic 28–110
[2019-07-01] MEDS: IPRATROPIUM/ALBUTEROL 0.5-3(2.5)MG/3ML NEB NEB SCH ×4 (00:24→21:10)
[2019-07-01] MEDS: HYDROCODONE/ACETAMINOPHEN 5/325MG TABLET PO PRN ×2 (06:37→15:34)
[2019-07-01] MEDS: METHYLPREDNISOLONE SOD SUCC 40 MG/ML VIAL IV SCH (06:38)
[2019-07-01 07:13] LABS: HEMATOCRIT. 40.6 % (36.0-48.0); HEMOGLOBIN. 12.8 g/dL (12.0-16.0); MEAN CORPUSCULAR HEMOGLOBIN 33.1 pg (28.0-32.0); MEAN CORPUSCULAR VOLUME 105.1 fL (81.0-99.0); MEAN PLATELET VOLUME 9.1 fl (7.4-10.4); PLATELET 240 x1000/uL (130-400); RED BLOOD CELL COUNT 3.86 mill/uL (4.2-5.4); RED CELL DISTRIBUTION WIDTH 19.9 % (11.6-14.6)
[2019-07-01] MEDS: METRONIDAZOLE 500MG TABLET PO SCH ×2 (09:00→13:18)
[2019-07-01] MEDS: ASPIRIN 81MG EC TABLET PO SCH (09:00)
[2019-07-01] MEDS: MIDODRINE HCL 5MG TABLET PO SCH (09:00)
[2019-07-01] MEDS: ALPRAZOLAM 0.25 MG TABLET PO SCH (09:00)
[2019-07-01] MEDS ORDERED: ALBUMIN HUMAN 25GM/100ML (25%) IV SCH (10:00)
[2019-07-01] MEDS ORDERED: SODIUM BICARBONATE 4% (2.4MEQ) 5ML VIAL IV ONE (11:23)
[2019-07-01] MEDS ORDERED: IOHEXOL-300 100 ML BOTTLE ONE (11:23)
[2019-07-01] MEDS ORDERED: LIDOCAINE HCL 1% 20ML VIAL (Pyxis) INJ ONE (11:24)
[2019-07-01] MEDS: ACETAMINOPHEN 325MG TABLET PO PRN (13:29)
[2019-07-01] MEDS ORDERED: MIDODRINE HCL 2.5MG TABLET PO NR ×2 (15:00)
[2019-07-01] MEDS: SODIUM CHLORIDE 0.9% 1,000 ML IV SCH (15:07)
[2019-07-01] MEDS ORDERED: ALBUMIN HUMAN 25GM/100ML (25%) IV NR (16:00)
[2019-07-01 16:33] LABS: NUCLEATED RED BLOOD CELLS 3 /100 WBC
[2019-07-01 16:34] LABS: PLATELET ESTIMATE NORMAL
[2019-07-01] MEDS ORDERED: CYCLOBENZAPRINE 10MG TABLET PO PRN (16:45)
[2019-07-01] MEDS ORDERED: METHYLPREDNISOLONE SOD SUCC 125 MG/2 ML VIAL IV SCH (18:37)
[2019-07-01] MEDS ORDERED: MIDODRINE HCL 5MG TABLET PO SCH (20:00)
[2019-07-01] MEDS ORDERED: SODIUM CHLORIDE 0.9% 250 ML IV ONE (23:45)
[2019-07-02] VITALS: BP 86/55
[2019-07-02] MEDS: IPRATROPIUM/ALBUTEROL 0.5-3(2.5)MG/3ML NEB NEB SCH (00:56)
[2019-07-02 02:30] VITALS: BP 84/51
[2019-07-02 02:31] VITALS: BP 94/47
[2019-07-02 03:01] VITALS: BP 80/32
[2019-07-02] MEDS ORDERED: NOREPINEPHRINE 8 MG in DEXT 5% WATER 242 ML IV PRN (03:15)
[2019-07-02] MEDS ORDERED: DEXTROSE 50% WATER 50ML SYRINGE IV PRN (03:15)
[2019-07-02 03:21] LABS: BG BASE EXCESS -19.5 mmol/L (-2.0-2.0); BG CARBOXYHEMOGLOBIN 0.1 % (0.5-1.5); BG DEOXYHEMOGLOBIN 5.1 % (0.0-5.0); BG FRACTION INSPIRED OXYGEN 100; BG HCO3 ACT 9.3 mmol/L (22.0-26.0); BG METHEMOGLOBIN 0.7 % (0.0-1.5); BG OXYGEN SATURATION 94.9 % (92.0-98.5); BG OXYHEMOGLOBIN 94.1 % (94.0-97.0); BG PH 7.081 (7.350-7.450); BG PO2 104.2 mmHg (75.0-100.0); BG SAMPLE SITE RIGHT RADIAL; BG TIDAL VOLUME(mL) 500 mL; BG TOTAL HEMOGLOBIN 11.4 g/dL (12.0-18.0); BG VENT MODE VENT - A/C; BG VENT RATE 14 set
[2019-07-02] MEDS ORDERED: SODIUM CHLORIDE 0.9% 250 ML IV ONE (23:45)
== END 2019-07-02 04:00 | disposition expired | DRG 208 ==
LOC: ER 11:36 → 5EST 13:21 → EDBEDREQ 13:24 → EDBEDREQSVC 13:24 → ENRESERV 13:57 → 5EST 17:31 → MICUNO 07-02 02:30
PROVIDERS: ADMIT Internal Medicine; ATTEND Internal Medicine
PROC: 5A09357 Assistance with Respiratory Ventilation, Less than 24 Consecutive Hours, Continuous Positive Airway Pressure (ICD-10-PCS; 2019-06-27)
PROC: 5A1D70Z Performance of Urinary Filtration, Intermittent, Less than 6 Hours Per Day (ICD-10-PCS; 2019-06-27)
PROC: 06HY33Z Insertion of Infusion Device into Lower Vein, Percutaneous Approach (ICD-10-PCS; principal; 2019-06-29)
PROC: B54BZZA Ultrasonography of Right Lower Extremity Veins, Guidance (ICD-10-PCS; 2019-06-29)
PROC: 5A1D70Z Performance of Urinary Filtration, Intermittent, Less than 6 Hours Per Day (ICD-10-PCS; 2019-06-29)
PROC: B54MZZZ Ultrasonography of Right Upper Extremity Veins (ICD-10-PCS; 2019-07-01)
PROC: B34HZZZ Ultrasonography of Right Upper Extremity Arteries (ICD-10-PCS; 2019-07-01)
PROC: B51W1ZZ Fluoroscopy of Dialysis Shunt/Fistula using Low Osmolar Contrast (ICD-10-PCS; 2019-07-01)
PROC: 5A1D70Z Performance of Urinary Filtration, Intermittent, Less than 6 Hours Per Day (ICD-10-PCS; 2019-07-01)
PROC: 5A1935Z Respiratory Ventilation, Less than 24 Consecutive Hours (ICD-10-PCS; 2019-07-02)
PROC: 5A12012 Performance of Cardiac Output, Single, Manual (ICD-10-PCS; 2019-07-02)
PROC: 0BH17EZ Insertion of Endotracheal Airway into Trachea, Via Natural or Artificial Opening (ICD-10-PCS; 2019-07-02)
PROC: 5A12012 Performance of Cardiac Output, Single, Manual (ICD-10-PCS; 2019-07-02)
DX: J44.1 Chronic obstructive pulmonary disease with (acute) exacerbation (principal); J96.91 Respiratory failure, unspecified with hypoxia; N18.6 End stage renal disease; E43 Unspecified severe protein-calorie malnutrition; E87.3 Alkalosis; R18.8 Other ascites; I42.9 Cardiomyopathy, unspecified; I50.22 Chronic systolic (congestive) heart failure; I48.92 Unspecified atrial flutter; I13.2 Hypertensive heart and chronic kidney disease with heart failure and with stage 5 chronic kidney disease, or end stage renal disease; E87.1 Hypo-osmolality and hyponatremia; I42.8 Other cardiomyopathies; T82.510A Breakdown (mechanical) of surgically created arteriovenous fistula, initial encounter; E78.5 Hyperlipidemia, unspecified; R13.10 Dysphagia, unspecified; M85.80 Other specified disorders of bone density and structure, unspecified site; K74.60 Unspecified cirrhosis of liver; I49.5 Sick sinus syndrome; I25.5 Ischemic cardiomyopathy; I25.10 Atherosclerotic heart disease of native coronary artery without angina pectoris; I08.0 Rheumatic disorders of both mitral and aortic valves; E87.5 Hyperkalemia; F32.9 Major depressive disorder, single episode, unspecified; F41.1 Generalized anxiety disorder; G89.29 Other chronic pain; I27.20 Pulmonary hypertension, unspecified; I46.9 Cardiac arrest, cause unspecified; I48.91 Unspecified atrial fibrillation; Z96.649 Presence of unspecified artificial hip joint; Z96.659 Presence of unspecified artificial knee joint; R62.7 Adult failure to thrive; I95.89 Other hypotension; K72.90 Hepatic failure, unspecified without coma; Y71.2 Prosthetic and other implants, materials and accessory cardiovascular devices associated with adverse incidents; Z82.49 Family history of ischemic heart disease and other diseases of the circulatory system; Z95.810 Presence of automatic (implantable) cardiac defibrillator; Z95.5 Presence of coronary angioplasty implant and graft; Z79.02 Long term (current) use of antithrombotics/antiplatelets; Z68.21 Body mass index [BMI] 21.0-21.9, adult; Z99.2 Dependence on renal dialysis; Z87.891 Personal history of nicotine dependence; I25.2 Old myocardial infarction; Z95.0 Presence of cardiac pacemaker; Z88.1 Allergy status to other antibiotic agents; Z88.8 Allergy status to other drugs, medicaments and biological substances; Z79.01 Long term (current) use of anticoagulants; Z79.82 Long term (current) use of aspirin; Z79.899 Other long term (current) drug therapy
CPT/HCPCS: 36415; 36556; 36600; 36901; 71045; 72131; 76700; 76937; 80048; 80061; 82270; 82375; 82378; 82550; 82553; 82805; 82962; 83880; 84100; 84484; 87015; 87045; 87427; 87449; 87493; 93005; 94640; 94660; 99285; C1752; C1769; C1893; J1644; J2920; J2930; J3370; J3490; J7030; J7611; J7620; P9047; Q9967